=== PATIENT | male | born 1940 | race Caucasian/White ===

== ENCOUNTER → 2016-07-09 | Outpatient (CLI) | payer MEDICARE ==
[2016-07-09 08:50] LABS: Basophils # (A) 0.1 k/uL (0-0.2); Basophils % (A) 1 %; CH 30.1; CHCM 31.7; Eosinophils # (A) 0.3 k/uL (0-0.7); Eosinophils % (A) 5 %; HDW 2.39; HGB 16.6 gm/dL (13.0-17.5); Luc # (Auto) 0.14; Luc % (Auto) 2; Lymphocytes # (A) 1.7 k/uL (1.0-4.8); Lymphocytes % (A) 26 %; MCH 29.3 pg (25.0-35.0); MCHC 30.8 g/dL (31.0-37.0); MCV 95.2 fL (80.0-100.0); Mean Platelet Volume 7.4; Monocytes # (A) 0.3 k/uL (0-1.0); Monocytes % (A) 4 %; Neutrophils # (A) 4.1 k/uL (1.3-7.7); Neutrophils % (A) 62 %; RBC 5.67 m/uL (4.30-5.90); RDW 13.2 % (11.5-15.5); WBC 6.7 k/uL (3.8-10.6); WBC (Perox) 6.56
[2016-07-09 09:03] LABS: ALT 25 U/L (21-72); AST 20 U/L (17-59); Alkaline Phosphatase 95 U/L (38-126); Anion Gap 11 mmol/L; Blood Urea Nitrogen 19 mg/dL (9-20); Calcium 9.4 mg/dL (8.4-10.2); Carbon Dioxide 30 mmol/L (22-30); Chloride 101 mmol/L (98-107); Cholesterol 153 mg/dL (<200); Glucose 132 mg/dL (74-99); HDL Cholesterol 32 mg/dL (40-60); Non-African American GFR(MDRD) >60 (>60 ml/min/1.73 sqM); Potassium 4.7 mmol/L (3.5-5.1); Sodium 142 mmol/L (137-145); Total Bilirubin 0.9 mg/dL (0.2-1.3); Total Protein 7.3 g/dL (6.3-8.2); Triglycerides 90 mg/dL (<150)
[2016-07-09 12:11] LABS: Hemoglobin A1C 9.3 % (4.2-6.1)
== END ==
LOC: LABWHC1 08:15
PROVIDERS: ATTEND Internal Medicine Interventional Cardiology
DX: E78.2 Mixed hyperlipidemia (principal)
CPT/HCPCS: 36415; 80053; 80061; 83036; 84439; 84443; 85025

== ENCOUNTER → 2016-10-12 | Outpatient (CLI) | payer MEDICARE ==
[2016-10-12 09:36] LABS: Non-African American GFR(MDRD) >60 (>60 ml/min/1.73 sqM)
--- NOTE | 2016-10-12 11:19 | MR ---
EXAMINATION TYPE: MR brain wo/w con DATE OF EXAM: 10/12/2016 COMPARISON: 09/27/2013 HISTORY: Meningioma TECHNIQUE: Multiplanar, multisequence images of the brain and brainstem is performed without and with IV contras t, utilizing 20 mL intravenous MultiHance . FINDINGS:Postop defect noted in the left parietal brain compatible with patient's history of meningio ma, there is some residual gliosis, increased signal on inversion recovery and T2-weighted sequences in the underlying brain at this level as on prior exam. No abnormal enhancement. Midline structures demonstrate normal morphology. The craniocervical junction appears within normal limits. Craniocervical junction maintained. No evidence of acute ischemia. No cerebellopontine angle mass. Se lla turcica has a normal appearance. There are stable appearing nonspecific areas of abnormal signal throughout the white matter. Mild changes of chronic mastoiditis and sinusitis. Post contrast images demonstrate no abnormal enhancement. The dural venous sinuses appear patent. The visualized sinuses are clear and the globes are intact. IMPRESSION: 1. Stable postoperative change with no evidence of enhancing meningioma. 2. Postsurgical change with area of encephalomalacia involving the left parietal lobe stable in appea lelo 3. Nonspecific white matter changes most typical remote microvascular ischemia.
== END | disposition home or self-care (01) ==
LOC: RADMRIMAIN 08:56
PROVIDERS: ATTEND Neurological Surgery
DX: G93.89 Other specified disorders of brain (principal); R90.82 White matter disease, unspecified
CPT/HCPCS: 82565; 70553; 36415; A9577

== ENCOUNTER 2016-12-07 19:41 | Emergency (ER) | payer MEDICARE ==
[2016-12-07 19:51] VITALS: RESP 18
[2016-12-07] MEDS ORDERED: KETOROLAC 60 MG/2 ML VIAL IM STA (20:01)
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
--- NOTE | 2016-12-07 20:48 | XR ---
EXAMINATION TYPE: XR knee complete LT DATE OF EXAM: 12/07/2016 COMPARISON: NONE HISTORY: 76-year-old male knee pain for 3 days TECHNIQUE: 3 views FINDINGS: IMPRESSION: There is marginal spurring within the patellofemoral and medial compartments with mild to moderate me dial compartment joint space narrowing. Small knee joint effusion. Extensor mechanism is intact. No a cute fracture, subluxation, or dislocation. Metastatic calcifications in the popliteal artery. IMPRESSION: 1. Medial and patellofemoral compartment osteoarthrosis. Weightbearing view could better evaluate the degree of joint space narrowing in the medial compartment. 2. Small, likely reactive, knee joint effusion.
[2016-12-07 21:15] VITALS: BP 182/68; PULSE 64; TEMP 98.2
== END 2016-12-07 21:12 | disposition home or self-care (01) ==
LOC: EC 19:41
DX: M25.562 Pain in left knee (principal); I25.10 Atherosclerotic heart disease of native coronary artery without angina pectoris; J44.9 Chronic obstructive pulmonary disease, unspecified; E78.5 Hyperlipidemia, unspecified; I10 Essential (primary) hypertension; M19.90 Unspecified osteoarthritis, unspecified site; E10.9 Type 1 diabetes mellitus without complications; Z87.891 Personal history of nicotine dependence; Z79.4 Long term (current) use of insulin; Z79.1 Long term (current) use of non-steroidal anti-inflammatories (NSAID); Z79.82 Long term (current) use of aspirin; Z79.899 Other long term (current) drug therapy; Z88.5 Allergy status to narcotic agent; Z91.040 Latex allergy status
CPT/HCPCS: 73562; 99283; 96372; J1885

== ENCOUNTER 2017-06-01 09:56 | Inpatient (IN) | payer MEDICARE ==
[2017-06-01] MEDS ORDERED: DIAZEPAM 5 MG/ML 2 ML INJ IVP STA (10:27)
[2017-06-01] MEDS ORDERED: ONDANSETRON 4 MG/2 ML VIAL IVP STA (10:27)
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
[2017-06-01] MEDS: SODIUM CHLORIDE 0.9% 1,000 ML IV STA ×2 (10:49→16:51)
[2017-06-01 10:51] LABS: Basophils # (A) 0.1 k/uL (0-0.2); Basophils % (A) 1 %; Eosinophils # (A) 0.2 k/uL (0-0.7); Eosinophils % (A) 2 %; HCT 52.2 % (39.0-53.0); HGB 16.6 gm/dL (13.0-17.5); Lymphocytes # (A) 1.1 k/uL (1.0-4.8); Lymphocytes % (A) 11 %; MCH 29.8 pg (25.0-35.0); MCHC 31.8 g/dL (31.0-37.0); MCV 93.5 fL (80.0-100.0); Mean Platelet Volume 7.4; Monocytes # (A) 0.6 k/uL (0-1.0); Monocytes % (A) 6 %; Neutrophils # (A) 8.3 k/uL (1.3-7.7); Neutrophils % (A) 80 %; Platelet Count 208 k/uL (150-450); RBC 5.58 m/uL (4.30-5.90); WBC 10.5 k/uL (3.8-10.6)
[2017-06-01 10:59] LABS: ALT 25 U/L (21-72); AST 22 U/L (17-59); Albumin 3.9 g/dL (3.5-5.0); Alkaline Phosphatase 82 U/L (38-126); Amylase 54 U/L (30-110); Anion Gap 11 mmol/L; Blood Urea Nitrogen 24 mg/dL (9-20); Calcium 9.5 mg/dL (8.4-10.2); Carbon Dioxide 28 mmol/L (22-30); Chloride 101 mmol/L (98-107); Glucose 159 mg/dL (74-99); Lipase 16 U/L (23-300); Potassium 5.2 mmol/L (3.5-5.1); Sodium 140 mmol/L (137-145); Total Bilirubin 0.8 mg/dL (0.2-1.3); Total Protein 6.7 g/dL (6.3-8.2)
[2017-06-01 11:09] LABS: INR 1.1 (<1.2); Partial Thromboplastin Time 22.1 sec (22.0-30.0); Prothrombin Time 10.3 sec (9.0-12.0)
--- NOTE | 2017-06-01 11:25 | XR ---
EXAMINATION TYPE: XR KUB , 2 VIEWS DATE OF EXAM ORDERED: 06/01/2017 HISTORY: abdominal pain. COMPARISON: Previous study dated 03/07/2015. FINDINGS: There is an Koko Chick prosthesis in place. The lung bases are clear. Within the abdomen, there are multiple air-fluid levels. The gallbladder has been removed. There is n o evidence of obstruction or free air. IMPRESSION: FINDINGS MOST CONSISTENT WITH SMALL BOWEL ILEUS.
[2017-06-01] MEDS ORDERED: IOHEXOL 350 MG/ML 25 ML BOTTLE (ORAL USE) PO PRN (11:40)
[2017-06-01] MEDS ORDERED: RX INFO: IV CONTRAST WAS GIVEN 1 EACH MISC MISCELLANE PRN (11:40)
[2017-06-01 12:01] LABS: Appearance,Urine Clear (Clear); Bacteria,Urine Rare /hpf; Bilirubin,Urine Negative (Negative); Blood,Urine Negative (Negative); Color,Urine Yellow; Glucose,Urine (UA) Negative (Negative); Hyaline Casts,Urine 1 /lpf (0-2); Ketones,Urine Negative (Negative); Leukocyte Esterase,Urine Trace (Negative); Mucus,Urine Few /hpf; Nitrite,Urine Negative (Negative); PH, Urine 6.5 (5.0-8.0); Protein,Urine 1+ (Negative); RBC,Urine 1 /hpf (0-5); Specific Gravity,Urine 1.027 (1.001-1.035); WBC,Urine 3 /hpf (0-5)
--- NOTE | 2017-06-01 15:07 | CT ---
EXAMINATION TYPE: CT abdomen pelvis w con DATE OF EXAM: 06/01/2017 COMPARISON: 08/02/2015 HISTORY: Possible bowel obstruction CT DLP: 2033.8 mGycm Automated exposure control for dose reduction was used. TECHNIQUE: Helical acquisition of images was performed from the lung bases through the pelvis. CONTRAST: Performed with Oral Contrast and with IV Contrast, patient injected with 100 mL of Omnipaque 300. FINDINGS: There is nasogastric tube. There is a sleeve at the gastric fundus. Stomach otherwise appears normal. There is subpleural interstitial density at the lung bases consistent with fibrosis. There is no ple ural effusion. There are clips from cholecystectomy. Liver spleen pancreas appear normal. Bile ducts are not dilated . There is no adrenal mass. The kidneys show satisfactory contrast opacification. There is no hydroneph rosis. Abdominal aorta is atheromatous. There is no retroperitoneal adenopathy. Bladder distends smoo thly. There is no free fluid in the pelvis. There is fluid in the right colon. There are some dilated loops of small bowel that measure up to 3.5 cm in the mid abdomen. I do not see a transition point. There is no evidence of mesenteric edema. I see no small bowel wall thickening. I see no bony destructive process. IMPRESSION: THERE ARE SOME MILDLY DILATED SMALL BOWEL LOOPS IN THE MID ABDOMEN. I DO NOT SEE A TRANSITION POINT A ND I THINK THIS IS DUE TO INTESTINAL ILEUS. THERE IS FLUID IN THE RIGHT COLON ALSO CONSISTENT WITH IL EUS. MECHANICAL OBSTRUCTION CANNOT BE ENTIRELY EXCLUDED. ATHEROSCLEROTIC VASCULAR DISEASE. PREVIOUS BARIATRIC SURGERY NOTED. FIBROTIC CHANGES AT THE LUNG BASE S.
[2017-06-01] MEDS ORDERED: ONDANSETRON 4 MG/2 ML VIAL IVP PRN (15:29)
[2017-06-01] MEDS ORDERED: NALOXONE 0.4 MG/ML 1 ML VIAL IV PRN (15:29)
[2017-06-01 16:28] VITALS: BMI 29.5
[2017-06-01] MEDS ORDERED: NAPROXEN 250 MG TAB PO PRN (17:17)
[2017-06-01 17:29] LABS: Glucose,Whole Blood 107 mg/dL (75-99)
[2017-06-01] MEDS: INSULIN ASPART 100 UNIT/ML 1 ML 10 ML VIAL SQ SCH ×3 (18:06→21:05)
[2017-06-01 20:21] LABS: Glucose,Whole Blood 85 mg/dL (75-99)
[2017-06-01] MEDS: INSULIN DETEMIR 100 UNIT/ML 10 ML VIAL SQ SCH (21:05)
[2017-06-01] MEDS: ATORVASTATIN 10 MG TAB PO SCH (21:06)
[2017-06-01] MEDS: GABAPENTIN 100 MG CAP PO SCH ×2 (21:06→21:24)
[2017-06-01] MEDS: POTASSIUM CHLORIDE ER 10 MEQ TAB.ER.PRT PO SCH (21:06)
[2017-06-01] MEDS: ISOSORBIDE MONONITRATE ER 30 MG TAB.ER.24H PO SCH ×2 (21:06→21:24)
[2017-06-01] MEDS: MAGNESIUM OXIDE 400 MG TAB PO SCH (21:06)
[2017-06-01] MEDS: PANTOPRAZOLE 40 MG TABLET PO SCH ×2 (21:06→21:24)
[2017-06-01] MEDS: LOSARTAN 50 MG TAB PO SCH (21:06)
[2017-06-01] MEDS: KETOROLAC 30 MG/ML 1 ML VIAL IVP PRN (21:09)
[2017-06-01] MEDS: PANTOPRAZOLE 40 MG/10 ML VIAL IVP SCH (23:25)
[2017-06-01 23:28] LABS: Hemoglobin A1C 7.3 % (4.0-6.0)
[2017-06-02 06:43] LABS: Basophils # (A) 0.1 k/uL (0-0.2); Basophils % (A) 1 %; Eosinophils # (A) 0.4 k/uL (0-0.7); Eosinophils % (A) 6 %; HGB 14.4 gm/dL (13.0-17.5); Lymphocytes # (A) 1.4 k/uL (1.0-4.8); Lymphocytes % (A) 18 %; MCH 29.4 pg (25.0-35.0); MCHC 30.1 g/dL (31.0-37.0); MCV 97.7 fL (80.0-100.0); Mean Platelet Volume 6.8; Monocytes # (A) 0.5 k/uL (0-1.0); Monocytes % (A) 6 %; Neutrophils # (A) 4.9 k/uL (1.3-7.7); Neutrophils % (A) 67 %; Platelet Count 193 k/uL (150-450); RBC 4.91 m/uL (4.30-5.90); RDW 14.4 % (11.5-15.5); WBC 7.3 k/uL (3.8-10.6)
[2017-06-02 06:54] LABS: ALT 29 U/L (21-72); AST 23 U/L (17-59); Albumin 2.9 g/dL (3.5-5.0); Alkaline Phosphatase 63 U/L (38-126); Anion Gap 7 mmol/L; Blood Urea Nitrogen 22 mg/dL (9-20); Calcium 8.4 mg/dL (8.4-10.2); Carbon Dioxide 29 mmol/L (22-30); Chloride 104 mmol/L (98-107); Potassium 4.7 mmol/L (3.5-5.1); Sodium 140 mmol/L (137-145); Total Bilirubin 0.9 mg/dL (0.2-1.3); Total Protein 5.3 g/dL (6.3-8.2)
[2017-06-02] MEDS: DEXTROSE 50%-WATER 50 ML SYRINGE IVP STA ×2 (07:10→11:46)
[2017-06-02 07:11] LABS: Glucose 46 mg/dL (74-99)
[2017-06-02 07:20] VITALS: RESP 16
[2017-06-02 07:28] LABS: Glucose,Whole Blood 48 mg/dL (75-99)
[2017-06-02 07:36] LABS: Glucose,Whole Blood 116 mg/dL (75-99)
[2017-06-02] MEDS: INSULIN ASPART 100 UNIT/ML 1 ML 10 ML VIAL SQ SCH ×7 (07:55→21:54)
[2017-06-02] MEDS: VIT A,C & E-LUTEIN-MINERALS 1 EACH TAB PO SCH (08:23)
[2017-06-02] MEDS: PANTOPRAZOLE 40 MG/10 ML VIAL IVP SCH (08:24)
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
[2017-06-02 11:48] LABS: Glucose,Whole Blood 47 mg/dL (75-99)
[2017-06-02] MEDS: DEXTROSE 5%-0.9% NACL 1,000 ML IV SCH ×2 (12:00→21:59)
[2017-06-02 12:37] LABS: Glucose,Whole Blood 105 mg/dL (75-99)
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
--- NOTE | 2017-06-02 13:54 | XR ---
EXAMINATION TYPE: XR abdomen 2V DATE OF EXAM: 06/02/2017 CLINICAL HISTORY: Ileus. History of prior bowel surgery and obstruction. TECHNIQUE: Supine and upright views of the abdomen are obtained. COMPARISON: Abdominal x-ray and CT abdomen and pelvis from yesterday. FINDINGS: There is some paucity of small bowel gas. Gas is seen and probably nondistended small callie l loops. Slightly prominent gas-filled small bowel loops left lower quadrant remain present. Contrast from CT has progressed to colonic level. Cholecystectomy clips are redemonstrated. Surgical changes at diaphragmatic hiatus are again seen. The lung bases are clear and the osseous structures are inta ct. IMPRESSION: Overall nonspecific bowel gas pattern. Favor mild partial mid to distal small bowel obst ruction. No complete obstruction is present.
[2017-06-02] MEDS: KETOROLAC 30 MG/ML 1 ML VIAL IVP PRN (16:09)
[2017-06-02 17:10] LABS: Glucose,Whole Blood 152 mg/dL (75-99)
[2017-06-02 21:34] LABS: Glucose,Whole Blood 241 mg/dL (75-99)
[2017-06-02] MEDS: GABAPENTIN 100 MG CAP PO SCH (21:51)
[2017-06-02] MEDS: HEPARIN SODIUM,PORCINE 5,000 UNIT/ML 1 ML VIAL SQ SCH (21:51)
[2017-06-02] MEDS: POTASSIUM CHLORIDE ER 10 MEQ TAB.ER.PRT PO SCH (21:52)
[2017-06-02] MEDS: ISOSORBIDE MONONITRATE ER 30 MG TAB.ER.24H PO SCH (21:52)
[2017-06-02] MEDS: MAGNESIUM OXIDE 400 MG TAB PO SCH (21:52)
[2017-06-02] MEDS: ATORVASTATIN 10 MG TAB PO SCH (21:52)
[2017-06-02] MEDS: INSULIN DETEMIR 100 UNIT/ML 10 ML VIAL SQ SCH (21:52)
[2017-06-02] MEDS: LOSARTAN 50 MG TAB PO SCH (21:52)
[2017-06-03 07:05] LABS: Glucose,Whole Blood 96 mg/dL (75-99)
[2017-06-03] MEDS: INSULIN ASPART 100 UNIT/ML 1 ML 10 ML VIAL SQ SCH ×4 (07:56→12:58)
--- NOTE | 2017-06-03 08:14 | XR ---
EXAMINATION TYPE: XR abdomen 2V DATE OF EXAM: 06/03/2017 COMPARISON: June 02, 2017 HISTORY: Pain TECHNIQUE: Supine and upright views of the abdomen are submitted. FINDINGS: Contrast is seen within the colon. Distended loops of small bowel in midabdomen persist although appe ars slightly improved. No convincing evidence for pneumoperitoneum. No unusual calcifications. The lung bases are clear. The osseous structures are intact. IMPRESSION: 1. Contrast is seen within the colon. Distended loops of small bowel in midabdomen persist although appears slightly improved.
[2017-06-03] MEDS: HEPARIN SODIUM,PORCINE 5,000 UNIT/ML 1 ML VIAL SQ SCH (08:24)
[2017-06-03] MEDS: PANTOPRAZOLE 40 MG/10 ML VIAL IVP SCH (08:24)
[2017-06-03] MEDS: VIT A,C & E-LUTEIN-MINERALS 1 EACH TAB PO SCH (08:26)
[2017-06-03] MEDS: DEXTROSE 5%-0.9% NACL 1,000 ML IV SCH (08:27)
[2017-06-03 10:05] VITALS: BP 129/62; PULSE 63; TEMP 97.5
[2017-06-03 11:35] LABS: Glucose,Whole Blood 176 mg/dL (75-99)
--- NOTE | 2017-06-03 11:47 | P.PN ---
Subjective Progress Note Date: 06/03/17 76-year-old seen and examined up ambulating in the room and claire states passing gas. Reports no nausea vomiting. Patient states he had a bowel movement this morning. States abdominal pain has resolved . being followed by surgical service at the request of the attending for abdominal pain likely due to partial small bowel obstruction with ileus. Initially treated with a nasal gastric tube which was able to be removed on June 02 clear liquid diet with a noted improvement in the abdominal pain Objective - Vital Signs Vital signs: Vital Signs Temp 97.5 F L 06/03/17 07:00 Pulse 63 06/03/17 07:00 Resp 16 06/03/17 07:00 BP 129/62 06/03/17 07:00 Pulse Ox 97 06/03/17 07:00 Intake & Output 06/02/17 06/03/17 06/03/17 18:59 06:59 18:59 Intake Total 200 2590 Output Total 750 Balance -550 2590 Intake: IV 200 1000 Dextrose 5%-0.9% NaCl 1, 200 1000 000 ml @ 100 mls/hr IV . Q10H YOANDY Rx#:[id number] Oral 1590 Output: Gastric Drainage 350 Urine 400 Other: # Voids 1 - Exam Physical exam Pleasant 76-year-old gentleman up ambulating in the room appears in no acute distress oriented 3 states doing better abdominal pain resolved Lungs adequate air movement bilaterally no shortness of breath on room air Heart S1-S2 audible regular denying chest pain Abdomen soft no facial grimacing with palpitation to the abdominal wall bowel tones present no nausea no vomiting states had a large bowel movement this morning tolerating diet urinating no difficulty nontender nondistended Extremities no edema - Labs CBC & Chem 7: 06/02/17 06:13 06/02/17 06:13 Labs: Abnormal Lab Results - Last 24 Hours (Table) 06/02/17 06/02/17 06/02/17 Range/Units 11:42 12:10 17:04 POC Glucose (mg/dL) 47 L 105 H 152 H (75-99) mg/dL 06/02/17 06/03/17 Range/Units 20:51 11:25 POC Glucose (mg/dL) 241 H 176 H (75-99) mg/dL Assessment and Plan Assessment: Impression Present on admission umbilical epigastric discomfort with nausea sensation no active emesis suspect due to ileus resolving Present on admission nausea epigastric pain CAT scan abdomen and pelvis with contrast fluid in the right colon consistent with an ileus History of prior partial bowel obstruction most recent July 2015 History of a cholecystectomy done in 2015 History of chronic constipation Type 2 diabetes insulin requiring Hyperlipidemia Esophageal reflux Plan Advance to full liquid diet Continue with conservative management IV hydration as ordered Increase activity as tolerated DVT and GI prophylaxis No evidence of an acute surgical abdomen at this time will sign off re-eval as needed Pain control Progress note dictated for dr ramsay The above impression and plan of care have been discussed and directed by signing physician. Ana Marcelo nurse practitioner acting as scribe for signing physician.
--- NOTE | 2017-06-03 14:06 | CDI ---
Last Revision, March 2017 Documentation Clarification Form Date: 06/03/2017 1:44:00 PM From: Carole Frederick RN Admit Date: 06/01/2017 3:29:00 PM Patient Name: Leonel Mantilla Visit Number: [id number] ATTENTION: The Clinical Documentation Specialists (CDI) and [facility] Coding Staff appreciate your assistance in clarifying documentation. Please respond to the clarification below the line at the bottom and electronically sign. The CDI & [facility] Coding staff will review the response and follow-up if needed. Please note: Queries are made part of the Legal Health Record. If you have any questions, please contact the author of this message via ITS. Dr. Breezy Lopez and Mary Espinosa N.P., Conflicting documentation has been found in the medical record. In the H&P on 06/02 it is stated " combination of partial small bowel obstruction along with severe ileus" and "severe ileus with no real bowel obstruction". History/Risk Factors: CAD, COPD, DM, Hyperlipidemia, HTN, Osteoarthritis, Syncope multiple bowel obstructions in past currently admitted with severe abdominal pain and Ileus Clinical Indicators: CT on 06/01: mildly dilated small bowel loops in the mid abdomen. intestinal ileus. there is fluid in the right colon consistent with ileus. mechanical obstruction cannot be entirely excluded. Abdomen xr on 06/02: nonspecific bowel gas pattern, favor mild partial mid to distal small bowel obstruction. Progress Note on 06/03 Surgery states "partial small bowel obstruction with ileus". Treatment: Protonix, Zofran, IV fluids Consult: Surgical In your opinion what is the most clinically appropriate diagnosis for this patient? Small bowel obstruction Small bowel obstruction with Ileus Ileus (please specify cause) Other explanation of clinical findings Unable to determine (no explanation for clinical findings) Please continue to document in your progress notes and discharge summary in order to capture severity of illness and risk of mortality. Include clinical findings that support your diagnosis. MTDD
--- NOTE | 2017-06-03 15:09 | P.DS ---
Providers Date of admission: 06/01/17 15:29 Expected date of discharge: 06/03/17 Attending physician: Breezy Lopez Consults: 06/01/17 15:29 Consult Physician Urgent Consulting Provider: Maame Greenberg Reason/Comments: Ileus Do you want consulting provider notified?: Already Contacted Primary care physician: Breezy Lopez [facility] Course: 76-year-old male one of my office patient with past medical history of CAD COPD mild diabetes hyperlipidemia hypertension and osteoarthritis who had multiple abdominal surgery with previous history of partial obstruction with multiple adhesion in the past. Patient had significant constipation most of the time has been suffering from increase abdominal discomfort with nausea on and off become much worse the last 48 hours [facility] with nausea and vomiting with worsening pain was seen and evaluated his abdominal x-ray showed fluid level CAT scan of the abdomen showed more severe ileus with no real obstruction. Patient had an NG tube and was treated with conservative management and surgical consultation and admitted to the hospital with above problem. 06/03: Patient's diet will be advanced to regular for lunch today. He states he has had a bowel movement and denies any nausea vomiting. Patient will be discharged home later today after he has been seen by Dr. Greenberg Discharge diagnoses: 1 severe abdominal pain secondary to ileus 2 severe ileus with no real bowel obstruction 3 CAD 4 type 2 diabetes on insulin 5 hypertension 6 hyperlipidemia 7 severe GERD 8 severe neuropathy Discharge plan: Return home Impression and plan of care have been directed as dictated by the signing physician. Mary Espinosa nurse practitioner acting as scribe for signing physician. Patient Condition at Discharge: Good Plan - Discharge Summary New Discharge Prescriptions: No Action Simvastatin [Zocor] 20 mg PO HS Lansoprazole [Prevacid] 30 mg PO HS Isosorbide Mononitrate ER [Imdur] 30 mg PO HS Insulin Glargine [Lantus] 58 unit SQ HS Gabapentin [Neurontin] 200 mg PO HS Naproxen Sodium 220 mg PO BID PRN PRN Reason: Pain Potassium 595 mg PO HS Bisacodyl [Dulcolax] 10 mg PO ONCE PRN PRN Reason: Constipation Magnesium Oxide [Mag-Ox] 250 mg PO HS Losartan [Cozaar] 50 mg PO HS Insulin Aspart [NovoLOG (formulary)] 12 unit SQ AC-BRKFST Insulin Aspart [NovoLOG (formulary)] 17 unit SQ AC-SUPPER Insulin Aspart [NovoLOG (formulary)] 12 unit SQ AC-LUNCH C,E,Zinc,Copper 11/Vyzxu9g/Lut [Ocuvite Adult 50 Plus Softgel] 1 cap PO DAILY Discharge Medication List Gabapentin [Neurontin] 200 mg PO HS 08/02/15 [History] Insulin Glargine [Lantus] 58 unit SQ HS 08/02/15 [History] Isosorbide Mononitrate ER [Imdur] 30 mg PO HS 08/02/15 [History] Lansoprazole [Prevacid] 30 mg PO HS 08/02/15 [History] Simvastatin [Zocor] 20 mg PO HS 08/02/15 [History] Naproxen Sodium 220 mg PO BID PRN 02/16/16 [History] Potassium 595 mg PO HS 12/07/16 [History] Bisacodyl [Dulcolax] 10 mg PO ONCE PRN 06/01/17 [History] C,E,Zinc,Copper 11/Tfuxm0z/Lut [Ocuvite Adult 50 Plus Softgel] 1 cap PO DAILY [History] Insulin Aspart [NovoLOG (formulary)] 12 unit SQ AC-BRKFST 06/01/17 [History] Insulin Aspart [NovoLOG (formulary)] 12 unit SQ AC-LUNCH 06/01/17 [History] Insulin Aspart [NovoLOG (formulary)] 17 unit SQ AC-SUPPER 06/01/17 [History] Losartan [Cozaar] 50 mg PO HS 06/01/17 [History] Magnesium Oxide [Mag-Ox] 250 mg PO HS 06/01/17 [History] Follow up Appointment(s)/Referral(s): Breezy Lopez MD [Primary Care Provider] - 06/05/17 10:30 am Patient Instructions/Handouts: Ileus (DC)
== END 2017-06-03 14:45 | disposition home or self-care (01) | DRG 390 ==
LOC: EC 09:56 → 3SUR 15:29
PROVIDERS: ADMIT Internal Medicine Geriatric Medicine; ATTEND Internal Medicine Geriatric Medicine
DX: K56.7 Ileus, unspecified (principal); E11.40 Type 2 diabetes mellitus with diabetic neuropathy, unspecified; E11.69 Type 2 diabetes mellitus with other specified complication; E78.5 Hyperlipidemia, unspecified; I10 Essential (primary) hypertension; I25.10 Atherosclerotic heart disease of native coronary artery without angina pectoris; J43.9 Emphysema, unspecified; K21.9 Gastro-esophageal reflux disease without esophagitis; Z79.4 Long term (current) use of insulin; Z79.899 Other long term (current) drug therapy; Z80.0 Family history of malignant neoplasm of digestive organs; Z82.49 Family history of ischemic heart disease and other diseases of the circulatory system; Z86.011 Personal history of benign neoplasm of the brain; Z87.891 Personal history of nicotine dependence; Z96.1 Presence of intraocular lens; Z98.41 Cataract extraction status, right eye; Z98.42 Cataract extraction status, left eye; Z91.040 Latex allergy status
CPT/HCPCS: 36415; 43753; 74018; 74019; 74177; 80053; 81001; 82150; 83036; 83605; 83690; 85025; 85610; 85730; 86850; 86900; 86901; 96374; 96375; 99285

== ENCOUNTER → 2017-10-03 | Outpatient (CLI) | payer MEDICARE ==
[2017-10-03 10:35] LABS: Basophils # (A) 0.1 k/uL (0-0.2); Basophils % (A) 1 %; Eosinophils # (A) 0.4 k/uL (0-0.7); Eosinophils % (A) 6 %; HCT 50.9 % (39.0-53.0); HGB 16.6 gm/dL (13.0-17.5); Lymphocytes # (A) 1.5 k/uL (1.0-4.8); Lymphocytes % (A) 20 %; MCH 30.2 pg (25.0-35.0); MCHC 32.5 g/dL (31.0-37.0); MCV 92.8 fL (80.0-100.0); Mean Platelet Volume 6.5; Monocytes # (A) 0.4 k/uL (0-1.0); Monocytes % (A) 6 %; Neutrophils # (A) 4.7 k/uL (1.3-7.7); Neutrophils % (A) 65 %; Platelet Count 190 k/uL (150-450); RBC 5.49 m/uL (4.30-5.90); RDW 13.4 % (11.5-15.5); WBC 7.2 k/uL (3.8-10.6)
[2017-10-03 10:46] LABS: ALT 28 U/L (21-72); AST 22 U/L (17-59); Albumin 3.9 g/dL (3.5-5.0); Alkaline Phosphatase 72 U/L (38-126); Anion Gap 10 mmol/L; Blood Urea Nitrogen 18 mg/dL (9-20); Calcium 9.1 mg/dL (8.4-10.2); Carbon Dioxide 32 mmol/L (22-30); Chloride 99 mmol/L (98-107); Cholesterol 131 mg/dL (<200); Glucose 103 mg/dL (74-99); HDL Cholesterol 28 mg/dL (40-60); LDL Cholesterol,Calculated 87 mg/dL (0-99); Potassium 4.8 mmol/L (3.5-5.1); Sodium 141 mmol/L (137-145); Total Bilirubin 0.9 mg/dL (0.2-1.3); Total Protein 6.5 g/dL (6.3-8.2); Triglycerides 78 mg/dL (<150)
[2017-10-03 11:00] LABS: T4, Free (Free Thyroxine) 1.25 ng/dL (0.78-2.19)
[2017-10-03 17:28] LABS: Hemoglobin A1C 7.5 % (4.0-6.0)
== END | disposition home or self-care (01) ==
LOC: LABWHC1 10:00
PROVIDERS: ATTEND Internal Medicine Endocrinology, Diabetes & Metabolism
DX: E11.65 Type 2 diabetes mellitus with hyperglycemia (principal); K21.9 Gastro-esophageal reflux disease without esophagitis; E78.00 Pure hypercholesterolemia, unspecified; I10 Essential (primary) hypertension
CPT/HCPCS: 36415; 80053; 80061; 82043; 82570; 83036; 84439; 84443; 85025

== ENCOUNTER 2017-11-29 18:54 | Inpatient (IN) | payer MEDICARE ==
[2017-11-29] MEDS ORDERED: SODIUM CHLORIDE 0.9% 1,000 ML IV STA (19:05)
[2017-11-29 19:10] LABS: Glucose,Whole Blood 208 mg/dL (75-99)
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
[2017-11-29 19:27] LABS: Basophils % (A) 0 %; Eosinophils # (A) 0.3 k/uL (0-0.7); Eosinophils % (A) 3 %; HCT 45.2 % (39.0-53.0); HGB 14.1 gm/dL (13.0-17.5); Lymphocytes # (A) 0.9 k/uL (1.0-4.8); Lymphocytes % (A) 10 %; MCH 27.9 pg (25.0-35.0); MCHC 31.2 g/dL (31.0-37.0); MCV 89.6 fL (80.0-100.0); Mean Platelet Volume 6.6; Monocytes # (A) 0.4 k/uL (0-1.0); Monocytes % (A) 4 %; Neutrophils # (A) 7.6 k/uL (1.3-7.7); Neutrophils % (A) 82 %; Platelet Count 226 k/uL (150-450); RBC 5.05 m/uL (4.30-5.90); RDW 13.1 % (11.5-15.5); WBC 9.3 k/uL (3.8-10.6)
[2017-11-29 19:38] LABS: INR 1.1 (<1.2); Partial Thromboplastin Time 23.3 sec (22.0-30.0); Prothrombin Time 10.5 sec (9.0-12.0)
[2017-11-29 19:46] LABS: Creatine Kinase 77 U/L (55-170)
[2017-11-29 19:47] LABS: ALT 33 U/L (21-72); AST 23 U/L (17-59); Albumin 3.5 g/dL (3.5-5.0); Alkaline Phosphatase 78 U/L (38-126); Anion Gap 6 mmol/L; Blood Urea Nitrogen 18 mg/dL (9-20); Calcium 8.8 mg/dL (8.4-10.2); Carbon Dioxide 27 mmol/L (22-30); Chloride 99 mmol/L (98-107); Glucose 215 mg/dL (74-99); Potassium 5.6 mmol/L (3.5-5.1); Sodium 132 mmol/L (137-145); Total Bilirubin 0.5 mg/dL (0.2-1.3); Total Protein 6.1 g/dL (6.3-8.2)
[2017-11-29 19:58] LABS: Creatine Kinase MB 0.9 ng/mL (0.0-2.4); Troponin I <0.012 ng/mL (0.000-0.034)
--- NOTE | 2017-11-29 20:01 | CT ---
EXAMINATION TYPE: CT brain wo con for TPA DATE OF EXAM: 11/29/2017 COMPARISON: 09/18/2013. INDICATION: Neuro deficits. DLP: 1035.2 mGycm, Automated exposure control for dose reduction was used. CONTRAST: None CT of the brain is performed utilizing 3 mm thick sections through the posterior fossa and 3 mm thick sections through the remaining calvarium. Study is performed within 24 hours of arrival to the hosp ital. No abnormal hyperdensity is present to suggest an acute intracranial hemorrhage. No mass lesion is evident. No acute infarcts are evident. 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 Mild periventricular white gayle er ischemic type changes are present. Ventricles and sulci are otherwise appropriate for the patient age. Paranasal sinuses and mastoid air cells within the [id number] are clear. IMPRESSIONS: 1. 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 2. Periventricular white matter ischemic change is stable. 3. No acute intracranial hemorrhage. 4. No acute cranial process.
--- NOTE | 2017-11-29 20:14 | XR ---
EXAMINATION TYPE: XR chest 2V DATE OF EXAM: 11/29/2017 COMPARISON: 09/18/2013 INDICATION: Altered mental status TECHNIQUE: Frontal and lateral views of the chest are obtained. FINDINGS: The heart size is enlarged. The pulmonary vasculature is prominent. Minimal increased lung markings are present.. IMPRESSION: 1. Mild increased lung markings with cardiomegaly. Correlate for early pulmonary edema Overload
--- NOTE | 2017-11-29 20:25 | CT ---
EXAMINATION TYPE: CT angio head neck DATE OF EXAM: 11/29/2017 HISTORY: Neuro deficits. COMPARISON: None CT DLP: 310 mGycm. Automated Exposure Control for Dose Reduction was Utilized. TECHNIQUE: CTA scan of the neck is performed with IV Contrast, patient injected with 65ml mL of Isov ue 370, axial images are obtained, coronal and sagittal reformatted images are reviewed. Three-D kiel nstructed images are created on an independent workstation and reviewed. FINDINGS: Carotid/Vascular Structures: Common carotid arteries bifurcate into internal and external carotid art eries. Mild plaquing is present at the left carotid bifurcation without significant flow-limiting boaz nosis. The internal carotid arteries are tortuous. [place]: The internal carotid arteries bifurcate into A1 and M1 segments. A2 segments are no rmal. Middle cerebral artery branches appear within normal limits. Posterior cerebral vasculature is normal. Posterior communicating arteries are not identified. The anterior communicating artery is pat ent. IMPRESSION: 1. No significant flow-limiting stenosis.
[2017-11-29] MEDS ORDERED: SODIUM POLYSTYRENE SULFONATE 15 GM/60 ML BOTTLE PO STA (23:13)
[2017-11-29] MEDS ORDERED: NALOXONE 0.4 MG/ML 1 ML VIAL IV PRN (23:14)
[2017-11-29] MEDS ORDERED: ACETAMINOPHEN TAB 325 MG TAB PO PRN (23:14)
[2017-11-29] MEDS: SODIUM CHLORIDE 0.9% 1,000 ML IV SCH (23:35)
[2017-11-30 03:19] LABS: Appearance,Urine Clear (Clear); Bilirubin,Urine Negative (Negative); Blood,Urine Negative (Negative); Color,Urine Light Yellow; Glucose,Urine (UA) Negative (Negative); Ketones,Urine Negative (Negative); Leukocyte Esterase,Urine Negative (Negative); Nitrite,Urine Negative (Negative); Protein,Urine Negative (Negative); Specific Gravity,Urine 1.013 (1.001-1.035); Urobilinogen,Urine <2.0 mg/dL (<2.0)
[2017-11-30] MEDS: INSULIN ASPART 100 UNIT/ML 1 ML 10 ML VIAL SQ SCH ×4 (08:03→21:24)
[2017-11-30 08:36] LABS: Glucose,Whole Blood 248 mg/dL (75-99)
[2017-11-30 11:49] LABS: Glucose,Whole Blood 290 mg/dL (75-99)
[2017-11-30 13:18] LABS: Glucose,Whole Blood 262 mg/dL (75-99)
--- NOTE | 2017-11-30 13:42 | CT ---
EXAMINATION TYPE: CT brain wo con for TPA DATE OF EXAM: 11/30/2017 COMPARISON: Previous study dated 11/29/2017 HISTORY: CODE Stroke CT DLP: 1047.10 mGycm Automated exposure control for dose reduction was used. FINDINGS: There are generalized changes of sulcal prominence and ventriculomegaly, compatible with atrophic hal nge. There is diffuse periventricular white matter lucency, compatible with chronic white matter isch emic change. There has been a previous left parietal craniotomy. There is adjacent encephalomalacia. This may relate to a previous watershed infarct or other insult. There is no acute focal lesion, mass effect or midline shift. There is no intracranial blood. Visualized portions of the paranasal sinuses and mastoids are clear. IMPRESSION: 1. NO ACUTE INTRACRANIAL ABNORMALITY. 2. POSTOPERATIVE CHANGE. 3. 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
[2017-11-30 14:06] LABS: Basophils % (A) 1 %; Eosinophils # (A) 0.4 k/uL (0-0.7); Eosinophils % (A) 6 %; HCT 46.6 % (39.0-53.0); Lymphocytes # (A) 1.3 k/uL (1.0-4.8); Lymphocytes % (A) 20 %; MCH 29.3 pg (25.0-35.0); MCHC 32.1 g/dL (31.0-37.0); MCV 91.3 fL (80.0-100.0); Mean Platelet Volume 6.7; Monocytes # (A) 0.3 k/uL (0-1.0); Monocytes % (A) 4 %; Neutrophils # (A) 4.4 k/uL (1.3-7.7); Neutrophils % (A) 67 %; Platelet Count 194 k/uL (150-450); RBC 5.11 m/uL (4.30-5.90); RDW 13.3 % (11.5-15.5); WBC 6.5 k/uL (3.8-10.6)
[2017-11-30 14:14] LABS: INR 1.1 (<1.2); Partial Thromboplastin Time 23.3 sec (22.0-30.0); Prothrombin Time 10.9 sec (9.0-12.0)
[2017-11-30 14:22] LABS: ALT 28 U/L (21-72); AST 21 U/L (17-59); Albumin 3.4 g/dL (3.5-5.0); Alkaline Phosphatase 69 U/L (38-126); Anion Gap 7 mmol/L; Blood Urea Nitrogen 16 mg/dL (9-20); Calcium 8.8 mg/dL (8.4-10.2); Carbon Dioxide 25 mmol/L (22-30); Chloride 102 mmol/L (98-107); Glucose 239 mg/dL (74-99); Potassium 4.8 mmol/L (3.5-5.1); Sodium 134 mmol/L (137-145); Total Bilirubin 0.6 mg/dL (0.2-1.3); Total Protein 5.9 g/dL (6.3-8.2)
[2017-11-30 14:50] LABS: Amphetamine Screen,Urine Not Detected (NotDetected); Barbiturate Screen,Urine Not Detected (NotDetected); Benzodiazepines Screen,Urine Not Detected (NotDetected); Cocaine Screen,Urine Not Detected (NotDetected); Methadone Screen, Urine Not Detected (NotDetected); Opiate Screen,Urine Not Detected (NotDetected); Oxycodone Screen, Urine Not Detected (NotDetected); Phencyclidine Screen,Urine Not Detected (NotDetected); Tricyclic Antidepressant,Urine Not Detected (NotDetected); Urn Cannabinoid Scrn Not Detected (NotDetected)
[2017-11-30 16:45] LABS: Glucose,Whole Blood 205 mg/dL (75-99)
[2017-11-30] MEDS ORDERED: BISACODYL 5 MG TABLET.DR PO PRN (17:29)
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
[2017-11-30] MEDS ORDERED: ATORVASTATIN 10 MG TAB PO SCH (21:00)
[2017-11-30] MEDS: INSULIN DETEMIR 100 UNIT/ML 10 ML VIAL SQ SCH (21:05)
[2017-11-30] MEDS: LOSARTAN 50 MG TAB PO SCH (21:06)
[2017-11-30] MEDS: PANTOPRAZOLE 40 MG TABLET PO SCH (21:06)
[2017-11-30] MEDS: GABAPENTIN 100 MG CAP PO SCH (21:06)
[2017-11-30] MEDS: ISOSORBIDE MONONITRATE ER 30 MG TAB.ER.24H PO SCH (21:06)
[2017-11-30] MEDS: MAGNESIUM OXIDE 400 MG TAB PO SCH (21:07)
[2017-11-30] MEDS: ATORVASTATIN 40 MG TAB PO SCH (21:09)
[2017-11-30] MEDS: CLOPIDOGREL 75 MG TAB PO SCH (21:09)
[2017-11-30 21:11] LABS: Glucose,Whole Blood 313 mg/dL (75-99)
[2017-11-30] MEDS: SODIUM CHLORIDE 0.9% 1,000 ML IV SCH (21:31)
[2017-12-01 05:45] LABS: Glucose,Whole Blood 237 mg/dL (75-99)
[2017-12-01] MEDS: INSULIN ASPART 100 UNIT/ML 1 ML 10 ML VIAL SQ SCH ×4 (06:04→21:40)
--- NOTE | 2017-12-01 07:00 | MR ---
EXAMINATION TYPE: MR brain wo/w con DATE OF EXAM: 12/01/2017 COMPARISON: CT brain from yesterday. MRI brain from October 12, 2016. HISTORY: Stroke per order. Patient admitted for code stroke symptoms one day earlier, weakness, alter ed mental status, and fall. TECHNIQUE: Multiplanar, multisequence images of the brain and brainstem is performed without and with IV contras t, utilizing 10 mL intravenous Gadavist . FINDINGS: Diffusion weighted images demonstrate area of increased signal on diffusion weighted images with diminished signal on ADC mapping involving the anterior aspect of right thalamus with superior extension to the coronal radiata that shows T2 hyperintensity and T1 hypointensity consistent with ev olving acute/subacute infarct measuring approximately 2.1 x 1.3 cm image 136 series 305. Craniocaudal dimension is 1.2 cm sagittal image 97. No enhancement currently. There is no extra-axial fluid collection or significant white matter signal abnormality. The ventric ular system and cisternal spaces are stable in size and appearance. The brain volume is age appropri ate. Old infarct left parietal region axial image 20 is redemonstrated. Craniotomy changes superior t o this are redemonstrated. Midline structures demonstrate normal morphology. The craniocervical junction appears within normal limits. Post contrast images demonstrate no abnormal enhancement. The dural venous sinuses appear pa tent. Mild to moderate mucosal thickening involving ethmoid sinuses is again seen with mild mucosal t hickening inferior right maxillary sinus. The globes are intact bilaterally. IMPRESSION: Evolving roughly 2.0 cm acute infarct centered in the anterior right thalamus.
[2017-12-01 08:16] LABS: Basophils % (A) 1 %; Eosinophils # (A) 0.5 k/uL (0-0.7); Eosinophils % (A) 7 %; HCT 44.3 % (39.0-53.0); HGB 13.8 gm/dL (13.0-17.5); Lymphocytes # (A) 1.2 k/uL (1.0-4.8); Lymphocytes % (A) 18 %; MCHC 31.1 g/dL (31.0-37.0); MCV 90.1 fL (80.0-100.0); Mean Platelet Volume 6.7; Monocytes # (A) 0.4 k/uL (0-1.0); Monocytes % (A) 6 %; Neutrophils # (A) 4.5 k/uL (1.3-7.7); Neutrophils % (A) 66 %; Platelet Count 223 k/uL (150-450); RBC 4.91 m/uL (4.30-5.90); RDW 13.1 % (11.5-15.5); WBC 6.7 k/uL (3.8-10.6)
[2017-12-01 08:36] LABS: Albumin 3.1 g/dL (3.5-5.0); Calcium 8.9 mg/dL (8.4-10.2); Potassium 4.7 mmol/L (3.5-5.1); Total Bilirubin 0.7 mg/dL (0.2-1.3); Total Protein 5.6 g/dL (6.3-8.2)
--- NOTE | 2017-12-01 10:51 | ECHOF ---
Referral Reason:code stroke MEASUREMENTS -------- HEIGHT: 180.3 cm WEIGHT: 99.3 kg BP: 118/74 RVIDd: 3.0 cm (< 3.3) IVSd: 1.2 cm (0.6 - 1.1) LVIDd: 5.3 cm (3.9 - 5.3) LVPWd: 1.2 cm (0.6 - 1.1) IVSs: 2.0 cm LVIDs: 3.3 cm LVPWs: 1.7 cm LA Diam: 2.9 cm (2.7 - 3.8) LAESV Index (A-L): 16.00 ml/m Ao Diam: 3.6 cm (2.0 - 3.7) AV Cusp: 2.1 cm (1.5 - 2.6) MV EXCURSION: 21.150 mm (> 18.000) MV EF SLOPE: 14 mm/s (70 - 150) EPSS: 0.1 cm MV E Jared: 0.72 m/s MV DecT: 214 ms MV A Jared: 0.83 m/s MV E/A Ratio: 0.87 AR PHT: 745 ms FINDINGS -------- Sinus rhythm. This was a technically adequate study. The left ventricular size is normal. There is borderline concentric left ventricular hypertrophy. Overall left ventricular systolic function is normal with, an EF between 60 - 65 %. The right ventricle is normal in size. Normal LA size by volume 22+/-6 ml/m2. The right atrium is normal in size. There is mild aortic valve sclerosis. There is mild aortic regurgitation. Mild mitral annular calcification present. The tricuspid valve appears structurally normal. There is no pulmonic regurgitation present. The aortic root size is normal. IVC Not well visulized. There is no pericardial effusion. CONCLUSIONS -------- 1. Sinus rhythm. 2. This was a technically adequate study. 3. The left ventricular size is normal. 4. There is borderline concentric left ventricular hypertrophy. 5. Overall left ventricular systolic function is normal with, an EF between 60 - 65 %. 6. The right ventricle is normal in size. 7. Normal LA size by volume 22+/-6 ml/m2. 8. The right atrium is normal in size. 9. There is mild aortic valve sclerosis. 10. There is mild aortic regurgitation. 11. Mild mitral annular calcification present. 12. The tricuspid valve appears structurally normal. 13. There is no pulmonic regurgitation present. 14. The aortic root size is normal. 15. IVC Not well visulized. 16. There is no pericardial effusion. APPLICATION SECURITY SPECIALIST: Grace Jeffries RDCS
[2017-12-01 11:16] LABS: Glucose,Whole Blood 309 mg/dL (75-99)
[2017-12-01] MEDS: VIT A,C & E-LUTEIN-MINERALS 1 EACH TAB PO SCH (11:45)
[2017-12-01] MEDS: CLOPIDOGREL 75 MG TAB PO SCH (11:45)
[2017-12-01 11:54] LABS: Hemoglobin A1C 8.8 % (4.0-6.0)
--- NOTE | 2017-12-01 15:32 | P.PN ---
Subjective Progress Note Date: 12/01/17 76-year-old male patient of Dr. Lopez with past medical history of CAD COPD insulin-dependent diabetes hyperlipidemia hypertension and osteoarthritis who had multiple abdominal surgery with previous history of partial obstruction with multiple adhesion in the past. patient was doing well until yesterday afternoon when he had sudden onset of confusion and dizziness and had of all in the bathroom. Patient was dizzy but did not lose consciousness. Patient has been actively working in the garden on and does get hypoglycemic in the past. Glucose could not be checked as pupil meter was not working. EMS gave patient some dextrose which improved the glucose when patient came to the ER. Patient was found to be increasingly weak and had slurring of speech intermittently. He denies any confusion, loss of motor or sensory function. Patient denies any previous episodes. No history of seizure given. 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 Patient had a meningioma resected in 2003 due to recurrent headaches. Apart from the CT head patient also underwent CT angiogram of the neck with no acute card carotid stenosis seen.patient came to his room at 2 in the morning. He was found to be confused in at noon and was found to be slurring his speech. Nurse documented patient was speaking in Persian. Head CT was done with no acute finding. Neurology consult placed. Echocardiogram ordered. Patient to continue on telemetry while in the hospital. 12/01: MRI of the brain shows evolving 2 cm acute infarct centered in the anterior right thalamus. Echocardiogram reveals EF of 60-65% with borderline concentric left ventricular hypertrophy,mild aortic regurgitation. neurology has recommended changing aspirin to Plavix. PT, OT and speech therapies are ordered. blood sugars are running high as patient did not get his long-acting insulin last evening. There is concern for mild confusion today but patient can answer questions appropriately.etiology is following and will plan for event monitor tomorrow. Objective - Vital Signs Vital signs: Vital Signs Temp 97.0 F L 12/01/17 12:00 Pulse 78 12/01/17 12:00 Resp 16 12/01/17 12:00 BP 157/75 12/01/17 12:00 Pulse Ox 97 12/01/17 12:00 Intake & Output 11/30/17 12/01/17 12/01/17 18:59 06:59 18:59 Intake Total 240 480 476 Output Total 200 Balance 40 480 476 Weight 99.6 kg Intake: Oral 240 480 476 Output: Urine 200 Other: Voiding Method Urinal Urinal Urinal # Voids 2 2 1 - Exam General appearance: cooperative, no acute distress, obese - EENT Eyes: anicteric sclerae, PERRLA, normal appearance ENT: hearing grossly normal - Neck Neck: no lymphadenopathy, normal ROM, no other, no rigidity, no stridor, no thyromegaly - Respiratory Respiratory: bilateral: CTA, negative: diminished, dullness, rales, rhonchi - Cardiovascular Rhythm: regular Heart sounds: normal: S1, S2 Abnormal Heart Sounds: no systolic murmur, no diastolic murmur, no rub, no S3 Gallop, no S4 Gallop, no click, no other - Gastrointestinal General gastrointestinal: normal bowel sounds, soft - Integumentary Integumentary: no rash - Neurologic Neurologic: Dysarthria present. Left lower extremity 4+/5 with left arm drift positive no sensory deficit - Musculoskeletal Musculoskeletal: strength equal bilaterally - Psychiatric Psychiatric: A&O x's 3, appropriate affect - Labs CBC & Chem 7: 12/01/17 07:28 12/01/17 07:28 Labs: Abnormal Lab Results - Last 24 Hours (Table) 11/30/17 11/30/17 11/30/17 Range/Units 13:46 16:43 21:10 Sodium (137-145) mmol/L Glucose (74-99) mg/dL POC Glucose (mg/dL) 205 H 313 H (75-99) mg/dL Hemoglobin A1c 8.8 H (4.0-6.0) % Total Protein (6.3-8.2) g/dL Albumin (3.5-5.0) g/dL HDL Cholesterol (40-60) mg/dL 12/01/17 12/01/17 12/01/17 Range/Units 05:44 07:28 11:14 Sodium 135 L (137-145) mmol/L Glucose 248 H (74-99) mg/dL POC Glucose (mg/dL) 237 H 309 H (75-99) mg/dL Hemoglobin A1c (4.0-6.0) % Total Protein 5.6 L (6.3-8.2) g/dL Albumin 3.1 L (3.5-5.0) g/dL HDL Cholesterol 25 L (40-60) mg/dL Assessment and Plan Plan: 1. acute right thalamus ischemic stroke. neurology consult is appreciated. Aspirin was stopped and patient placed on Plavix. Continue Lipitor 40 mg. Echocardiogram as above. Cardiology will be consult regarding even monitor area 2 CAD: No chest pain or angina continue aspirin, Lipitor, Imdur. Patient could not tolerate beta elizabeth in the past has been off for the last year. 3 type 2 diabetes and insulin: Has been on Lantus and NovoLog decrease Lantus to 30 units at bedtime along with sliding scalePatient will be be continue medication continue with Accu-Chek with sliding scales coverage. 4 hypertension: Remain on losartan 50 mg daily. 5 hyperlipidemia: increase Lipitor to 40 mg by mouth daily. Lipid panel pending 6 severe GERD with GI prophylaxis:continue lansoprazole 30 mg po suri;y 7 severe neuropathy: Has been on gabapentin 200 mg daily at bedtime continue medication and titrate dose if needed. 8 DVT prophylaxis: Patient will be on heparin 5000 units subcutaneous twice a day. CODE STATUS: Full code. Discharge plan: To be determined. PT OT and speech therapies in place. Impression and plan of care have been directed as dictated by the signing physician. Mary Espinosa nurse practitioner acting as scribe for signing physician.
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
[2017-12-01 16:22] LABS: Glucose,Whole Blood 368 mg/dL (75-99)
--- NOTE | 2017-12-01 16:57 | P.PN ---
Subjective Progress Note Date: 12/01/17 Principal diagnosis: Patient is a pleasant 77-year-old male who is being followed by the neurology service for CVA. Patient has history of diabetes mellitus, hypertension, hyperlipidemia, COPD, and excision of meningioma. Patient states he was working in the hot sun picking [employer] in his yard and he went in the house to use the bathroom and fell off the stool. states she went in and found him on the floor and she noted him to have significant slurring of his speech and right facial droop. She called EMS and patient was brought to [facility] for further evaluation. CT angiogram of the head and neck did not reveal any significant flow limiting stenosis. CT scan of the brain revealed an old left watershed infarct but no acute process. Echocardiogram showed an ejection fraction of 60-65%. Patient had an MRI which showed an evolving 2 cm acute infarct anterior right thalamus. Patient continues to have mild dysarthria. At the time of my evaluation, patient is sitting up in the chair at the bedside and appears to be in no acute distress. Objective - Vital Signs Vital signs: Vital Signs Temp 97.0 F L 12/01/17 12:00 Pulse 78 12/01/17 12:00 Resp 16 12/01/17 12:00 BP 157/75 12/01/17 12:00 Pulse Ox 97 12/01/17 12:00 Intake & Output 11/30/17 12/01/17 12/01/17 18:59 06:59 18:59 Intake Total 240 480 476 Output Total 200 Balance 40 480 476 Weight 99.6 kg Intake: Oral 240 480 476 Output: Urine 200 Other: Voiding Method Urinal Urinal Urinal # Voids 2 2 1 - Exam PHYSICAL EXAM: GENERAL APPEARANCE: Patient is a well-developed, male who appears to be in no acute distress. HEENT: Normocephalic, atraumatic, slight facial asymmetry is seen. Neck is supple with no masses felt. CARDIOVASCULAR: Regular rate and rhythm. ABDOMEN: Nontender, nondistended. EXTREMITIES: Show no edema or clubbing. NEUROLOGICAL EXAM: Patient is awake, alert, and oriented 3. Speech is mildly dysarthric and language is normal. Strength is full in all 4 extremities. Sensory exam to light touch is normal in all 4 extremities. Mild right facial droop seen on cranial nerve testing. No tremors or seizure-like activity noted. - Labs CBC & Chem 7: 12/01/17 07:28 08 07:28 Labs: Abnormal Lab Results - Last 24 Hours (Table) 11/30/17 11/30/17 11/30/17 Range/Units 13:46 16:43 21:10 Sodium (137-145) mmol/L Glucose (74-99) mg/dL POC Glucose (mg/dL) 205 H 313 H (75-99) mg/dL Hemoglobin A1c 8.8 H (4.0-6.0) % Total Protein (6.3-8.2) g/dL Albumin (3.5-5.0) g/dL HDL Cholesterol (40-60) mg/dL 12/01/17 12/01/17 12/01/17 Range/Units 05:44 07:28 11:14 Sodium 135 L (137-145) mmol/L Glucose 248 H (74-99) mg/dL POC Glucose (mg/dL) 237 H 309 H (75-99) mg/dL Hemoglobin A1c (4.0-6.0) % Total Protein 5.6 L (6.3-8.2) g/dL Albumin 3.1 L (3.5-5.0) g/dL HDL Cholesterol 25 L (40-60) mg/dL 12/01/17 Range/Units 16:20 Sodium (137-145) mmol/L Glucose (74-99) mg/dL POC Glucose (mg/dL) 368 H (75-99) mg/dL Hemoglobin A1c (4.0-6.0) % Total Protein (6.3-8.2) g/dL Albumin (3.5-5.0) g/dL HDL Cholesterol (40-60) mg/dL Assessment and Plan Plan: Impression: 1. CVA/TIA 2. Dysarthria 3. Facial asymmetry 4. History of meningioma 5. Insulin-dependent diabetes 6. Hypertension 7. CAD 8. COPD Recommendation: Patient did suffer an acute infarct anterior right thalamus region. CTA shows no significant stenosis. EEG was done and results are pending. Serum homocysteine level is pending. If serum homocystine level is elevated I will start him on Foltx daily. His fasting lipid panel was within normal limits except for low HDL of 25. Continue Plavix 75 mg by mouth daily. Continue statin therapy. Continue adequate blood pressure control. Continue neurological checks. Cardiology is following and they're recommending 30 day event monitor. I recommend physical therapy to evaluate and treat. I had a lengthy discussion with the and family today regarding CVA, medications, and plans for rehabilitation. Barring any abnormalities on the EEG, I will continue to follow with you on an as-needed basis. Feel free to call with any questions or concerns. I performed an examination of the patient and discussed the management with the SENIOR CONSTRUCTION PROJECT MANAGER. I have reviewed the SENIOR CONSTRUCTION PROJECT MANAGER notes and agree with the findings and plan of care.
[2017-12-01] MEDS: ASPIRIN 81 MG PO SCH (17:55)
[2017-12-01] MEDS: INSULIN DETEMIR 100 UNIT/ML 10 ML VIAL SQ SCH (18:18)
[2017-12-01] MEDS: MAGNESIUM OXIDE 400 MG TAB PO SCH (20:26)
[2017-12-01] MEDS: GABAPENTIN 100 MG CAP PO SCH (20:26)
[2017-12-01] MEDS: LOSARTAN 50 MG TAB PO SCH (20:27)
[2017-12-01] MEDS: PANTOPRAZOLE 40 MG TABLET PO SCH (20:27)
[2017-12-01] MEDS: ISOSORBIDE MONONITRATE ER 30 MG TAB.ER.24H PO SCH (20:27)
[2017-12-01] MEDS: ATORVASTATIN 40 MG TAB PO SCH (20:27)
[2017-12-01 21:05] VITALS: RESP 18
[2017-12-01 21:05] LABS: Glucose,Whole Blood 351 mg/dL (75-99)
[2017-12-01] MEDS: SODIUM CHLORIDE 0.9% 1,000 ML IV SCH (21:45)
[2017-12-02 06:12] LABS: Glucose,Whole Blood 187 mg/dL (75-99)
[2017-12-02 06:28] LABS: Basophils # (A) 0.1 k/uL (0-0.2); Basophils % (A) 1 %; Eosinophils # (A) 0.6 k/uL (0-0.7); Eosinophils % (A) 7 %; HCT 45.2 % (39.0-53.0); HGB 14.2 gm/dL (13.0-17.5); Lymphocytes # (A) 1.8 k/uL (1.0-4.8); Lymphocytes % (A) 21 %; MCH 28.1 pg (25.0-35.0); MCHC 31.4 g/dL (31.0-37.0); MCV 89.4 fL (80.0-100.0); Mean Platelet Volume 6.5; Monocytes # (A) 0.5 k/uL (0-1.0); Monocytes % (A) 6 %; Neutrophils # (A) 5.3 k/uL (1.3-7.7); Neutrophils % (A) 64 %; Platelet Count 217 k/uL (150-450); RBC 5.05 m/uL (4.30-5.90); RDW 13.2 % (11.5-15.5); WBC 8.3 k/uL (3.8-10.6)
[2017-12-02 06:39] LABS: Albumin 3.5 g/dL (3.5-5.0); Total Bilirubin 0.9 mg/dL (0.2-1.3)
[2017-12-02] MEDS: INSULIN ASPART 100 UNIT/ML 1 ML 10 ML VIAL SQ SCH ×5 (06:53→20:39)
[2017-12-02] MEDS: CLOPIDOGREL 75 MG TAB PO SCH (08:11)
[2017-12-02] MEDS: ASPIRIN 81 MG PO SCH (08:11)
[2017-12-02] MEDS ORDERED: INSULIN ASPART 100 UNIT/ML 1 ML 10 ML VIAL SQ ONE (12:07)
[2017-12-02] MEDS: VIT A,C & E-LUTEIN-MINERALS 1 EACH TAB PO SCH (12:08)
[2017-12-02 12:21] LABS: Glucose,Whole Blood 334 mg/dL (75-99)
--- NOTE | 2017-12-02 13:27 | EEG ---
ELECTROENCEPHALOGRAM REPORT DATE OF SERVICE: 12/01/2017. REASON FOR TESTING: Dizziness and stroke. DESCRIPTION OF THE PROCEDURE: This EEG was performed using a 21 channel digital electroencephalograph, following international 10-20 system. DESCRIPTION OF THE RECORDING: From the beginning of the tracing, with patient's eyes closed, the background rhythm was mostly consisting of 9 Hz alpha frequency in the posterior occipital leads. No obvious asymmetry is seen. Photic stimulation was performed with a minimal driving response seen. No pathological waves were elicited. Occasional movement artifacts are seen. Hyperventilation was not performed. The patient does reach stage II of sleep during the tracing and occasional sleep spindles are seen. No epileptiform discharges were seen. His EKG lead showed a regular rate and rhythm. INTERPRETATION: This asleep and awake EEG can be considered within normal limits. There is no asymmetry seen. No epileptiform discharges were noticed. The absence of epileptiform discharges does not rule out the diagnosis of epilepsy; therefore clinical correlation is recommended. MMAVELL / IJTameka: [id number] /
--- NOTE | 2017-12-02 14:48 | P.PN ---
Subjective Progress Note Date: 12/02/17 This is a 77-year-old gentleman who follows with Dr. Rosado in the office. He has a known history of diabetes, hypertension, hyperlipidemia, COPD , patient developed sudden onset of confusion and dizziness, he had apparently been working in the garden when symptoms started. Patient was also noted to have significant slurring of his speech. For these reasons he came to the emergency room for further evaluation. CT angiography of the head and neck did not reveal any significant flow-limiting stenosis. CAT scan of the brain revealed an old left watershed infarct, para the ventricular white matter ischemic change, no acute intracranial bleed, no acute cranial process. Rest x- ray showed mild increased lung markings with cardiomegaly, currently for early pulmonary edema. EKG showed normal sinus rhythm with no acute changes. CAT scan of the brain did not reveal any acute intracranial abnormality, it did reveal evidence of previous infarct in the left parietal lobe. Echocardiogram with Doppler study was performed which revealed an ejection fraction of 60-65%. MRI shows an evolving 2 cm acute infarct center in the anterior right thalamus. Blood pressure 156/74 heart rate in the 60s to 70s, 97% on room air. White blood cell count 6.7, hemoglobin 15.8, platelet count 223. Sodium 135, potassium 4.7, BUN 17, creatinine 1.0. Troponins negative 2. At the time of my examination, family is at bedside, patient continues to have some slurring of his speech. 12/02/2017 Patient seen and examined this morning, blood pressure 130/60 with a heart rate in the 60s, 95% on room air. Arrangements are being made for the patient to be discharged today. We do recommend patient go with a 30 day event monitor on discharge. Follow-up appointment will be made in the office. Objective - Vital Signs Vital signs: Vital Signs Temp 97 F L 12/02/17 12:00 Pulse 72 12/02/17 12:00 Resp 18 12/02/17 12:00 BP 151/70 12/02/17 12:00 Pulse Ox 95 12/02/17 12:00 Intake & Output 12/01/17 12/02/17 12/02/17 18:59 06:59 18:59 Intake Total 1192 20 480 Balance 1192 20 480 Weight 94.943 kg Intake: IV 20 0.9% NS 20 Oral 1192 480 Other: Voiding Method Urinal Urinal # Voids 1 2 1 - Exam PHYSICAL EXAMINATION: GENERAL: 77-year-old gentleman in no acute distress at the time of my examination HEENT: Head is atraumatic, normocephalic. Pupils equal, round. Sclera anicteric. Conjunctiva are clear. Mucous membranes of the mouth are moist. Neck is supple. There is no elevated jugular venous pressure.] bruit is heard. HEART EXAMINATION: Heart S1 S2 1 systolic murmur is heard. CHEST EXAMINATION: Lungs are clear to auscultation and precussion. No chest wall tenderness is noted on palpation or with deep breathing. ABDOMEN: Soft, nontender. Bowel sounds are heard. No organomegaly noted. EXTREMITIES: 2+ peripheral pulses with no evidence of peripheral edema and no calf tenderness noted. NEUROLOGIC patient is awake alert and oriented 3, dysarthria present, left lower extremity 4 out of 5 with left arm drift noted. - Labs CBC & Chem 7: 12/02/17 05:57 12/02/17 05:57 Labs: Abnormal Lab Results - Last 24 Hours (Table) 12/01/17 12/01/17 12/02/17 Range/Units 16:20 20:55 05:57 Sodium 135 L (137-145) mmol/L Glucose 193 H (74-99) mg/dL POC Glucose (mg/dL) 368 H 351 H (75-99) mg/dL Total Protein 6.0 L (6.3-8.2) g/dL 12/02/17 12/02/17 Range/Units 06:02 11:56 Sodium (137-145) mmol/L Glucose (74-99) mg/dL POC Glucose (mg/dL) 187 H 334 H (75-99) mg/dL Total Protein (6.3-8.2) g/dL Assessment and Plan Plan: Assessment and plan #1 acute CVA, MRI revealed evolving roughly 2 cm acute infarct centered in the anterior right thalamus. #2 hypertension #3 diabetes #4 hyperlipidemia Plan Echocardiogram with Doppler study was performed revealed an ejection fraction of 60-65%. Infarct appears to be in the ophthalmic area, could be secondary to small vessel disease. We would recommend that once the patient is discharged home from the hospital that we place a 30 day event monitor. A follow-up appointment will be made in the office. DNP note has been reviewed, I agree with a documented findings and plan of care. Patient was seen and examined.
[2017-12-02 16:23] LABS: Glucose,Whole Blood 317 mg/dL (75-99)
[2017-12-02] MEDS: INSULIN DETEMIR 100 UNIT/ML 10 ML VIAL SQ SCH (17:27)
[2017-12-02] MEDS ORDERED: INSULIN ASPART 100 UNIT/ML 1 ML 10 ML VIAL SQ SCH (17:30)
[2017-12-02] MEDS: PANTOPRAZOLE 40 MG TABLET PO SCH ×2 (19:38→19:49)
[2017-12-02] MEDS: ISOSORBIDE MONONITRATE ER 30 MG TAB.ER.24H PO SCH (19:38)
[2017-12-02] MEDS: GABAPENTIN 100 MG CAP PO SCH (19:38)
[2017-12-02] MEDS: ATORVASTATIN 40 MG TAB PO SCH (19:38)
[2017-12-02] MEDS: MAGNESIUM OXIDE 400 MG TAB PO SCH (19:38)
[2017-12-02] MEDS: LOSARTAN 50 MG TAB PO SCH (19:38)
[2017-12-02 20:38] LABS: Glucose,Whole Blood 129 mg/dL (75-99)
[2017-12-02] MEDS: SODIUM CHLORIDE 0.9% 1,000 ML IV SCH (21:57)
[2017-12-03 05:41] LABS: Glucose,Whole Blood 131 mg/dL (75-99)
[2017-12-03 06:32] LABS: Basophils % (A) 0 %; Eosinophils # (A) 0.6 k/uL (0-0.7); Eosinophils % (A) 7 %; HCT 43.5 % (39.0-53.0); HGB 14.2 gm/dL (13.0-17.5); Lymphocytes # (A) 1.6 k/uL (1.0-4.8); Lymphocytes % (A) 18 %; MCH 29.2 pg (25.0-35.0); MCHC 32.7 g/dL (31.0-37.0); MCV 89.2 fL (80.0-100.0); Mean Platelet Volume 6.5; Monocytes # (A) 0.5 k/uL (0-1.0); Monocytes % (A) 5 %; Neutrophils # (A) 5.8 k/uL (1.3-7.7); Neutrophils % (A) 67 %; Platelet Count 222 k/uL (150-450); RBC 4.88 m/uL (4.30-5.90); RDW 13.3 % (11.5-15.5); WBC 8.5 k/uL (3.8-10.6)
[2017-12-03 06:54] LABS: ALT 28 U/L (21-72); AST 17 U/L (17-59); Albumin 3.2 g/dL (3.5-5.0); Alkaline Phosphatase 70 U/L (38-126); Anion Gap 8 mmol/L; Blood Urea Nitrogen 23 mg/dL (9-20); Calcium 8.8 mg/dL (8.4-10.2); Carbon Dioxide 26 mmol/L (22-30); Chloride 102 mmol/L (98-107); Glucose 138 mg/dL (74-99); Potassium 4.7 mmol/L (3.5-5.1); Sodium 136 mmol/L (137-145); Total Bilirubin 0.6 mg/dL (0.2-1.3); Total Protein 5.5 g/dL (6.3-8.2)
[2017-12-03] MEDS: INSULIN ASPART 100 UNIT/ML 1 ML 10 ML VIAL SQ SCH ×3 (07:01→12:38)
[2017-12-03] MEDS ORDERED: INSULIN ASPART 100 UNIT/ML 1 ML 10 ML VIAL SQ SCH (07:30)
[2017-12-03] MEDS: ASPIRIN 81 MG PO SCH (08:42)
[2017-12-03] MEDS: CLOPIDOGREL 75 MG TAB PO SCH (08:42)
--- NOTE | 2017-12-03 09:02 | P.PN ---
Subjective Progress Note Date: 12/02/17 76-year-old male patient of Dr. Lopez with past medical history of CAD COPD insulin-dependent diabetes hyperlipidemia hypertension and osteoarthritis who had multiple abdominal surgery with previous history of partial obstruction with multiple adhesion in the past. patient was doing well until yesterday afternoon when he had sudden onset of confusion and dizziness and had of all in the bathroom. Patient was dizzy but did not lose consciousness. Patient has been actively working in the garden on and does get hypoglycemic in the past. Glucose could not be checked as pupil meter was not working. EMS gave patient some dextrose which improved the glucose when patient came to the ER. Patient was found to be increasingly weak and had slurring of speech intermittently. He denies any confusion, loss of motor or sensory function. Patient denies any previous episodes. No history of seizure given. 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 Patient had a meningioma resected in 2003 due to recurrent headaches. Apart from the CT head patient also underwent CT angiogram of the neck with no acute card carotid stenosis seen.patient came to his room at 2 in the morning. He was found to be confused in at noon and was found to be slurring his speech. Nurse documented patient was speaking in German. Head CT was done with no acute finding. Neurology consult placed. Echocardiogram ordered. Patient to continue on telemetry while in the hospital. 12/01: MRI of the brain shows evolving 2 cm acute infarct centered in the anterior right thalamus. Echocardiogram reveals EF of 60-65% with borderline concentric left ventricular hypertrophy,mild aortic regurgitation. neurology has recommended changing aspirin to Plavix. PT, OT and speech therapies are ordered. blood sugars are running high as patient did not get his long-acting insulin last evening. There is concern for mild confusion today but patient can answer questions appropriately.etiology is following and will plan for event monitor tomorrow. 12/02: Plan is for patient to be discharged on Plavix and we will discontinue aspirin. Hydrochlorothiazide has been stopped. Blood sugars have been elevated in the 300s and patient resumed back on his NovoLog scheduled with meals. Event monitor to be placed by cardiology. PT has cleared him for discharge home. Patient is quite sleepy after taking a shower. Plan is for discharge tomorrow as they are sending things up at home stay at the daughter's Objective - Vital Signs Vital signs: Vital Signs Temp 97.4 F L 12/02/17 20:00 Pulse 63 12/03/17 04:00 Resp 18 12/03/17 04:00 BP 121/56 12/03/17 04:00 Pulse Ox 96 12/03/17 04:00 Intake & Output 12/02/17 12/03/17 12/03/17 18:59 06:59 18:59 Intake Total 720 495 240 Balance 720 495 240 Weight 94.943 kg 94.6 kg Intake: IV 15 0.9% NS 15 Oral 720 480 240 Other: Voiding Method Urinal # Voids 1 - Exam General appearance: cooperative, no acute distress, obese - EENT Eyes: anicteric sclerae, PERRLA, normal appearance ENT: hearing grossly normal - Neck Neck: no lymphadenopathy, normal ROM, no other, no rigidity, no stridor, no thyromegaly - Respiratory Respiratory: bilateral: CTA, negative: diminished, dullness, rales, rhonchi - Cardiovascular Rhythm: regular Heart sounds: normal: S1, S2 Abnormal Heart Sounds: no systolic murmur, no diastolic murmur, no rub, no S3 Gallop, no S4 Gallop, no click, no other - Gastrointestinal General gastrointestinal: normal bowel sounds, soft - Integumentary Integumentary: no rash - Neurologic Neurologic: Dysarthria present. Left lower extremity 4+/5 with left arm drift positive no sensory deficit - Musculoskeletal Musculoskeletal: strength equal bilaterally - Psychiatric Psychiatric: A&O x's 3, appropriate affect - Labs CBC & Chem 7: 12/03/17 06:13 12/03/17 06:13 Labs: Abnormal Lab Results - Last 24 Hours (Table) 12/02/17 12/02/17 12/02/17 Range/Units 11:56 16:20 20:37 Sodium (137-145) mmol/L BUN (9-20) mg/dL Glucose (74-99) mg/dL POC Glucose (mg/dL) 334 H 317 H 129 H (75-99) mg/dL Total Protein (6.3-8.2) g/dL Albumin (3.5-5.0) g/dL 12/03/17 12/03/17 Range/Units 05:40 06:13 Sodium 136 L (137-145) mmol/L BUN 23 H (9-20) mg/dL Glucose 138 H (74-99) mg/dL POC Glucose (mg/dL) 131 H (75-99) mg/dL Total Protein 5.5 L (6.3-8.2) g/dL Albumin 3.2 L (3.5-5.0) g/dL Assessment and Plan Plan: 1. acute right thalamus ischemic stroke. neurology consult is appreciated. Aspirin was stopped and patient placed on Plavix. Continue Lipitor 40 mg. Echocardiogram as above. Cardiology will be consult regarding event monitor. Neurology consult is appreciated. 2 CAD: No chest pain or angina continue aspirin, Lipitor, Imdur. Patient could not tolerate beta elizabeth in the past has been off for the last year. 3 type 2 diabetes and insulin: Has been on Lantus and NovoLog. Lantus was decreased to 30 units at bedtime. Scheduled NovoLog added back in. Continue scale. 4 hypertension: Remain on losartan 50 mg daily. 5 hyperlipidemia: increase Lipitor to 40 mg by mouth daily. Lipid panel pending 6 severe GERD with GI prophylaxis:continue lansoprazole 30 mg po suri;y 7 severe diabetic neuropathy: Has been on gabapentin 200 mg daily at bedtime continue medication and titrate dose if needed. 8 DVT prophylaxis: Patient will be on heparin 5000 units subcutaneous twice a day. CODE STATUS: Full code. Discharge plan: Daughter's home with home care tomorrow. Impression and plan of care have been directed as dictated by the signing physician. Mary Espinosa nurse practitioner acting as scribe for signing physician.
[2017-12-03 11:08] VITALS: TEMP 97.1
[2017-12-03 11:38] LABS: Glucose,Whole Blood 310 mg/dL (75-99)
[2017-12-03] MEDS: VIT A,C & E-LUTEIN-MINERALS 1 EACH TAB PO SCH (12:37)
[2017-12-03 14:07] VITALS: BP 130/62; PULSE 48
--- NOTE | 2017-12-03 16:20 | P.DS ---
Providers Date of admission: 11/29/17 23:16 Expected date of discharge: 12/03/17 Attending physician: Ihsan Garcia MD Consults: 11/30/17 14:13 Consult Physician Stat Consulting Provider: Brett Estrada Consult Reason/Comments: CVA Do you want consulting provider notified?: Yes 12/01/17 11:21 Consult Physician Routine Consulting Provider: Domingo Rosado Consult Reason/Comments: stroke Do you want consulting provider notified?: Yes Primary care physician: [facility] Course: 76-year-old male patient of Dr. Lopez with past medical history of CAD COPD insulin-dependent diabetes hyperlipidemia hypertension and osteoarthritis who had multiple abdominal surgery with previous history of partial obstruction with multiple adhesion in the past. patient was doing well until yesterday afternoon when he had sudden onset of confusion and dizziness and had of all in the bathroom. Patient was dizzy but did not lose consciousness. Patient has been actively working in the garden on and does get hypoglycemic in the past. Glucose could not be checked as pupil meter was not working. EMS gave patient some dextrose which improved the glucose when patient came to the ER. Patient was found to be increasingly weak and had slurring of speech intermittently. He denies any confusion, loss of motor or sensory function. Patient denies any previous episodes. No history of seizure given. 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 Patient had a meningioma resected in 2003 due to recurrent headaches. Apart from the CT head patient also underwent CT angiogram of the neck with no acute card carotid stenosis seen.patient came to his room at 2 in the morning. He was found to be confused in at noon and was found to be slurring his speech. Nurse documented patient was speaking in [place]. Head CT was done with no acute finding. Neurology consult placed. Echocardiogram ordered. Patient to continue on telemetry while in the hospital. 12/01: MRI of the brain shows evolving 2 cm acute infarct centered in the anterior right thalamus. Echocardiogram reveals EF of 60-65% with borderline concentric left ventricular hypertrophy,mild aortic regurgitation. neurology has recommended changing aspirin to Plavix. PT, OT and speech therapies are ordered. blood sugars are running high as patient did not get his long-acting insulin last evening. There is concern for mild confusion today but patient can answer questions appropriately.etiology is following and will plan for event monitor tomorrow. 12/02: Plan is for patient to be discharged on Plavix and we will discontinue aspirin. Hydrochlorothiazide has been stopped. Blood sugars have been elevated in the 300s and patient resumed back on his NovoLog scheduled with meals. Event monitor to be placed by cardiology. PT has cleared him for discharge home. Patient is quite sleepy after taking a shower. Plan is for discharge tomorrow as they are setting things up at home stay at the daughter's 12/03: Patient is discharged home today in stable condition. No medication changes to medication reconciliation. Discharge diagnoses: 1. acute right thalamus ischemic stroke. 2 CAD 3 type 2 diabetes uncontrolled with hyperglycemia, insulin requiring 4 hypertension 5 hyperlipidemia 6 severe GERD 7 severe diabetic neuropathy Discharge plan: Daughter's home with [facility] Impression and plan of care have been directed as dictated by the signing physician. Mary Espinosa nurse practitioner acting as scribe for signing physician. Patient Condition at Discharge: Good Plan - Discharge Summary New Discharge Prescriptions: New Clopidogrel [Plavix] 75 mg PO DAILY #30 tab Losartan [Cozaar] 50 mg PO HS #30 tab Atorvastatin [Lipitor] 40 mg PO HS #30 tab Continue Lansoprazole [Prevacid] 30 mg PO HS Isosorbide Mononitrate ER [Imdur] 30 mg PO HS Insulin Glargine [Lantus] 58 unit SQ AC-SUPPER Gabapentin [Neurontin] 200 mg PO HS Naproxen Sodium 220 mg PO BID PRN PRN Reason: Pain Potassium 595 mg PO HS Bisacodyl [Dulcolax] 10 mg PO ONCE PRN PRN Reason: Constipation Magnesium Oxide [Mag-Ox] 250 mg PO HS Insulin Aspart [NovoLOG (formulary)] 12 unit SQ AC-BRKFST Insulin Aspart [NovoLOG (formulary)] 17 unit SQ AC-SUPPER Insulin Aspart [NovoLOG (formulary)] 12 unit SQ AC-LUNCH C,E,Zinc,Copper 11/Acgeh0l/Lut [Ocuvite Adult 50 Plus Softgel] 1 cap PO DAILY Discontinued Simvastatin [Zocor] 20 mg PO HS Losartan-Hctz 50-12.5 mg [Hyzaar 50-12.5] 1 tab PO DAILY Discharge Medication List Gabapentin [Neurontin] 200 mg PO HS 08/02/15 [History] Insulin Glargine [Lantus] 58 unit SQ AC-SUPPER 08/02/15 [History] Isosorbide Mononitrate ER [Imdur] 30 mg PO HS 08/02/15 [History] Lansoprazole [Prevacid] 30 mg PO HS 08/02/15 [History] Naproxen Sodium 220 mg PO BID PRN 02/16/16 [History] Potassium 595 mg PO HS 12/07/16 [History] Bisacodyl [Dulcolax] 10 mg PO ONCE PRN 06/01/17 [History] C,E,Zinc,Copper 11/Unlbg1q/Lut [Ocuvite Adult 50 Plus Softgel] 1 cap PO DAILY [History] Insulin Aspart [NovoLOG (formulary)] 12 unit SQ AC-BRKFST 06/01/17 [History] Insulin Aspart [NovoLOG (formulary)] 12 unit SQ AC-LUNCH 06/01/17 [History] Insulin Aspart [NovoLOG (formulary)] 17 unit SQ AC-SUPPER 06/01/17 [History] Magnesium Oxide [Mag-Ox] 250 mg PO HS 06/01/17 [History] Atorvastatin [Lipitor] 40 mg PO HS #30 tab 12/02/17 [Rx] Clopidogrel [Plavix] 75 mg PO DAILY #30 tab 12/02/17 [Rx] Losartan [Cozaar] 50 mg PO HS #30 tab 12/02/17 [Rx] Follow up Appointment(s)/Referral(s): Domingo Rosado MD [STAFF PHYSICIAN] - 01/09/18 2:15 pm Breezy Lopez MD [Primary Care Provider] - 12/10/17 1:15 pm (Friday with [employer]) [facility], [NON-STAFF] - Brett Estrada MD [STAFF PHYSICIAN] - 1 Week ( Office will call with follow up appointment.) Patient Instructions/Handouts: Stroke (DC) Activity/Diet/Wound Care/Special Instructions: [facility] is mailing event monitor to home address, upon receiving bring to office if help is needed to put it on. Discharge Disposition: HOME WITH HOME HEALTH SERVICES
== END 2017-12-03 14:00 | disposition home health service (06) | DRG 66 ==
LOC: EC 18:54 → 5MS5E 23:16 → 6SEL 11-30 15:01 → OBSVTOIN 12-01 15:49
PROVIDERS: ADMIT Internal Medicine; ATTEND Internal Medicine
DX: I63.9 Cerebral infarction, unspecified (principal); E11.649 Type 2 diabetes mellitus with hypoglycemia without coma; I11.9 Hypertensive heart disease without heart failure; E11.40 Type 2 diabetes mellitus with diabetic neuropathy, unspecified; E11.65 Type 2 diabetes mellitus with hyperglycemia; I35.1 Nonrheumatic aortic (valve) insufficiency; J43.9 Emphysema, unspecified; R47.81 Slurred speech; R47.1 Dysarthria and anarthria; R40.2362 Coma scale, best motor response, obeys commands, at arrival to emergency department; R40.2142 Coma scale, eyes open, spontaneous, at arrival to emergency department; R40.2252 Coma scale, best verbal response, oriented, at arrival to emergency department; R29.702 NIHSS score 2; E78.5 Hyperlipidemia, unspecified; I25.10 Atherosclerotic heart disease of native coronary artery without angina pectoris; M19.91 Primary osteoarthritis, unspecified site; J30.2 Other seasonal allergic rhinitis; K21.9 Gastro-esophageal reflux disease without esophagitis; I83.93 Asymptomatic varicose veins of bilateral lower extremities; Z79.82 Long term (current) use of aspirin; Z79.4 Long term (current) use of insulin; Z87.820 Personal history of traumatic brain injury; Z87.81 Personal history of (healed) traumatic fracture; Z79.899 Other long term (current) drug therapy; Z96.1 Presence of intraocular lens; Z87.891 Personal history of nicotine dependence; Z86.011 Personal history of benign neoplasm of the brain; Z98.41 Cataract extraction status, right eye; Z98.42 Cataract extraction status, left eye; Z90.49 Acquired absence of other specified parts of digestive tract; Z88.5 Allergy status to narcotic agent; Z91.040 Latex allergy status; Z82.49 Family history of ischemic heart disease and other diseases of the circulatory system; Z80.0 Family history of malignant neoplasm of digestive organs
CPT/HCPCS: 36415; 70450; 70496; 70498; 70553; 71046; 80053; 80061; 80306; 81003; 82550; 82553; 83036; 83090; 84484; 85025; 85610; 85730; 93005; 93306; 95819; 96360; 96361; 99285

== ENCOUNTER → 2018-03-18 | Outpatient (CLI) | payer MEDICARE ==
[2018-03-18 18:53] LABS: T4, Free (Free Thyroxine) 1.2 ng/dL (0.80-1.80)
== END | disposition home or self-care (01) ==
LOC: LABWHC1 13:41
PROVIDERS: ATTEND Psychiatry & Neurology Pain Medicine
DX: R41.3 Other amnesia (principal)
CPT/HCPCS: 36415; 82607; 84439; 84443; 84481

== ENCOUNTER → 2018-06-01 | Outpatient (CLI) | payer MEDICARE ==
[2018-06-01 21:15] LABS: Hemoglobin A1C 7.7 % (4.0-6.0)
[2018-06-01 21:24] LABS: Albumin 3.8 g/dL (3.80-4.90); Albumin/Globulin Ratio 1.9 (1.60-3.17); Calcium 8.7 mg/dL (8.7-10.3); LDL Cholesterol,Calculated 61.8 mg/dL (0.0-131.0); Potassium 5.1 mmol/L (3.5-5.5); Total Protein 5.8 g/dL (6.2-8.2); VLDL Calculation 13.2 mg/dL (5.00-40.00)
== END | disposition home or self-care (01) ==
LOC: LABWHC1 12:06
PROVIDERS: ATTEND Internal Medicine Endocrinology, Diabetes & Metabolism
DX: E11.65 Type 2 diabetes mellitus with hyperglycemia (principal); I63.9 Cerebral infarction, unspecified
CPT/HCPCS: 36415; 80053; 80061; 82043; 82570; 83036; 84443

== ENCOUNTER → 2018-10-13 | Outpatient (CLI) | payer MEDICARE ==
[2018-10-13 14:22] LABS: Basophils # (A) 0.1 k/uL (0-0.2); Basophils % (A) 1 %; Eosinophils # (A) 0.5 k/uL (0-0.7); Eosinophils % (A) 8 %; HCT 48.1 % (39.0-53.0); HGB 15.1 gm/dL (13.0-17.5); Lymphocytes # (A) 1.4 k/uL (1.0-4.8); Lymphocytes % (A) 20 %; MCH 29.4 pg (25.0-35.0); MCHC 31.5 g/dL (31.0-37.0); MCV 93.6 fL (80.0-100.0); Mean Platelet Volume 6.9; Monocytes # (A) 0.3 k/uL (0-1.0); Monocytes % (A) 5 %; Neutrophils # (A) 4.4 k/uL (1.3-7.7); Neutrophils % (A) 65 %; Platelet Count 179 k/uL (150-450); RBC 5.14 m/uL (4.30-5.90); RDW 14.3 % (11.5-15.5); WBC 6.8 k/uL (3.8-10.6)
[2018-10-13 18:32] LABS: Iron Saturation 32.97 (15.00-50.00)
[2018-10-13 18:36] LABS: African American GFR (CKD) 82.6 (60.0-200.0); Albumin 3.9 g/dL (3.80-4.90); Albumin/Globulin Ratio 2.05 (1.60-3.17); Anion Gap 8.7 mmol/L (4.00-12.00); Calcium 8.9 mg/dL (8.7-10.3); Carbon Dioxide 27.3 mmol/L (21.6-31.8); Globulin 1.9 g/dL (1.6-3.3); LDL Cholesterol,Calculated 62.6 mg/dL (0.0-131.0); Potassium 4.6 mmol/L (3.5-5.5); Total Bilirubin 1.3 mg/dL (0.2-1.2); Total Protein 5.8 g/dL (6.2-8.2); Uric Acid 4.9 mg/dL (3.7-8.7); VLDL Calculation 15.4 mg/dL (5.00-40.00)
[2018-10-13 20:04] LABS: Hemoglobin A1C 7.8 % (4.0-6.0)
== END | disposition home or self-care (01) ==
LOC: LABWHC1 13:22
PROVIDERS: ATTEND Psychiatry & Neurology Pain Medicine
DX: E78.2 Mixed hyperlipidemia (principal); N18.9 Chronic kidney disease, unspecified; E11.65 Type 2 diabetes mellitus with hyperglycemia; E11.22 Type 2 diabetes mellitus with diabetic chronic kidney disease; Z86.73 Personal history of transient ischemic attack (TIA), and cerebral infarction without residual deficits
CPT/HCPCS: 36415; 80053; 80061; 82607; 83036; 83540; 83550; 84207; 84439; 84443; 84466; 84481; 84550; 85025

== ENCOUNTER → 2019-01-13 | Outpatient (CLI) | payer MEDICARE ==
--- NOTE | 2019-01-13 14:34 | CT ---
EXAMINATION TYPE: CT lumbar spine wo con DATE OF EXAM: 01/13/2019 2:15 PM COMPARISON: CT abdomen and pelvis June 01, 2017 HISTORY: Low back pain CT DLP: 994.4 mGycm Automated exposure control for dose reduction was used. Unenhanced CT of the lumbar spine was performed. Bone and soft tissue window settings are submitted as well as coronal and sagittal reconstructions. There are 5 lumbar type vertebra redemonstrated. Lumbar spine demonstrates satisfactory alignment wit hout evidence of acute fracture or dislocation. There is mild disc space narrowing L2-L3, L3-L4, and L5-S1 levels redemonstrated. Vertebral body heights are maintained. Vacuum disc phenomenon L5-S1 leve ls again seen. There is mild multilevel anterior lateral spurring. Spinal canal is grossly preserved. Axial images show and T12-L1 and L1-L2 level to appear within normal limits. Axial images at L2-L3 level show mild broad disc bulge mildly effacing the anterior thecal sac, bilat eral neural foramina are patent. Axial images at L3-L4 levels and mild facet degenerative changes bilaterally. There is mild broad dis c bulge mildly effacing the anterior thecal sac. Bilateral neuroforamina are patent. Axial images at the L4-L5 level and clmy-kn-uylstuxv facet degenerative changes and ligamentum flavum hypertrophy. There is qxta-cf-uxyybnci broad-based posterior disc protrusion effacing the anterior t hecal sac. There is mild left greater than right bilateral neural foraminal narrowing. Axial images at the L5-S1 level show yaag-cl-ipifkoom right greater than left facet degenerative simpson ges. Spinal canal is preserved. There is mild to moderate right-sided neural foraminal narrowing. Lef t-sided neural foramen is patent. Paraspinal muscle bulk is maintained. Please refer to same day CT abdomen and pelvis report for compl ete details of structures outside the spine. IMPRESSION: Multilevel degenerative changes as detailed above. No significant change or progression f rom June 01, 2017 CT.
--- NOTE | 2019-01-13 14:41 | CT ---
EXAMINATION TYPE: CT abdomen pelvis wo con DATE OF EXAM: 01/13/2019 HISTORY: hematuria, low back pain CT DLP: 994.4 mGycm. Automated Exposure Control for Dose Reduction was Utilized. TECHNIQUE: CT scan of the abdomen and pelvis is performed without oral or IV contrast. COMPARISON: CT abdomen and pelvis study June 01, 2017 FINDINGS: Within the limitations of a non-contrast study, the following observations are made. LUNG BASES:. Coronary artery calcification is present which is noted marker for underlying coronary a rtery disease. LIVER/GB: Cholecystectomy clips are redemonstrated. PANCREAS: Mild to moderate generalized fat replaced atrophy is thought progressed from prior. SPLEEN: No significant abnormality is seen. ADRENALS: No significant abnormality is seen. KIDNEYS: Some cortical thinning bilaterally. No renal calculi or hydronephrosis is seen bilaterally BOWEL:. There is redemonstration of ring shaped balloon inflated structure distal esophagus. Overlyin g anterior inferior aspect of this there is persistent metallic density with streak artifact axial im age 16 unchanged from prior presumed foreign body or post surgical device. No suspicious small or lar ge bowel dilatation. Slight redundancy of fecal filled sigmoid colon with occasional diverticula. No CT evidence for acute diverticulitis. GENITAL ORGANS: Upper limits of normal in size. LYMPH NODES: No greater than 1cm abdominal or pelvic lymph nodes are appreciated. OSSEOUS STRUCTURES: Please refer to same day CT lumbar spine report for complete details of the lumba r spine. Mild to moderate axial narrowing of both hip joints redemonstrated. Sclerotic focus left pro ximal femur coronal image 66 is stable presumed benign bone island. OTHER: Small fat-containing left inguinal hernia is redemonstrated. Moderate calcified plaque of the aorta extends into branch vessels. 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 IMPRESSION: No suspicious mass or calculus seen to account for the patient's symptoms of hematuria. A dvised urology referral for further workup.
== END | disposition home or self-care (01) ==
LOC: RADCTMAIN 13:09
PROVIDERS: ATTEND Psychiatry & Neurology Neurology
DX: M47.897 Other spondylosis, lumbosacral region (principal); R31.9 Hematuria, unspecified
CPT/HCPCS: 72131; 74176

== ENCOUNTER → 2019-01-13 | Outpatient (CLI) | payer MEDICARE | LOC: RADCTMAIN 13:13 | PROVIDERS: ATTEND Internal Medicine Geriatric Medicine | DX: Z53.9 Procedure and treatment not carried out, unspecified reason (principal) ==

== ENCOUNTER → 2019-01-26 | Outpatient (CLI) | payer MEDICARE ==
[2019-01-26 13:15] LABS: Basophils % (A) 1 %; Eosinophils # (A) 0.5 k/uL (0-0.7); Eosinophils % (A) 7 %; HCT 45.1 % (39.0-53.0); HGB 14.9 gm/dL (13.0-17.5); Lymphocytes # (A) 1.5 k/uL (1.0-4.8); Lymphocytes % (A) 23 %; MCH 30.5 pg (25.0-35.0); MCV 92.5 fL (80.0-100.0); Mean Platelet Volume 6.1; Monocytes # (A) 0.4 k/uL (0-1.0); Monocytes % (A) 6 %; Neutrophils # (A) 4.1 k/uL (1.3-7.7); Neutrophils % (A) 63 %; Platelet Count 179 k/uL (150-450); RBC 4.87 m/uL (4.30-5.90); RDW 13.5 % (11.5-15.5); WBC 6.6 k/uL (3.8-10.6)
[2019-01-26 21:18] LABS: Hemoglobin A1C 7.2 % (4.0-6.0)
[2019-01-27 04:23] LABS: African American GFR (CKD) 73.1 (60.0-200.0); Albumin/Globulin Ratio 2.22 (1.60-3.17); Anion Gap 12.6 mmol/L (4.00-12.00); BUN/Creat Ratio 22.73 Ratio (12.00-20.00); Calcium 9.1 mg/dL (8.7-10.3); Carbon Dioxide 25.4 mmol/L (21.6-31.8); Chol/HDL Ratio 2.73; Globulin 1.8 g/dL (1.6-3.3); LDL Cholesterol,Calculated 41.6 mg/dL (0.0-131.0); Potassium 5.1 mmol/L (3.5-5.5); Total Bilirubin 0.8 mg/dL (0.2-1.2); Total Protein 5.8 g/dL (6.2-8.2); VLDL Calculation 10.4 mg/dL (5.00-40.00)
== END | disposition home or self-care (01) ==
LOC: LABWHC1 11:42
PROVIDERS: ATTEND Internal Medicine Endocrinology, Diabetes & Metabolism
DX: E78.2 Mixed hyperlipidemia (principal); N18.3 Chronic kidney disease, stage 3 (moderate); I25.10 Atherosclerotic heart disease of native coronary artery without angina pectoris; E11.65 Type 2 diabetes mellitus with hyperglycemia; E11.22 Type 2 diabetes mellitus with diabetic chronic kidney disease
CPT/HCPCS: 36415; 80053; 80061; 83036; 84403; 84439; 84443; 85025

== ENCOUNTER → 2020-05-11 | Outpatient (CLI) | payer MEDICARE ==
[2020-05-11 14:56] LABS: Basophils # (A) 0.1 k/uL (0-0.2); Basophils % (A) 1 %; Eosinophils # (A) 0.5 k/uL (0-0.7); Eosinophils % (A) 7 %; HCT 42.7 % (39.0-53.0); HGB 13.3 gm/dL (13.0-17.5); Hypochromasia Slight; Lymphocytes # (A) 1.6 k/uL (1.0-4.8); Lymphocytes % (A) 20 %; MCH 28.4 pg (25.0-35.0); MCHC 31.2 g/dL (31.0-37.0); MCV 90.9 fL (80.0-100.0); Mean Platelet Volume 7.3; Monocytes # (A) 0.4 k/uL (0-1.0); Monocytes % (A) 5 %; Neutrophils # (A) 5.2 k/uL (1.3-7.7); Neutrophils % (A) 66 %; Platelet Count 214 k/uL (150-450); RBC 4.69 m/uL (4.30-5.90); RDW 14.6 % (11.5-15.5); WBC 7.9 k/uL (3.8-10.6)
[2020-05-12 02:33] LABS: % Iron Saturation 14.38 (15.00-50.00); African American GFR (CKD) 54.2 (60.0-200.0); BUN/Creat Ratio 23.57 Ratio (12.00-20.00); Chol/HDL Ratio 3.81; Folate, Serum 22.6 ng/mL; LDL Cholesterol,Calculated 60.2 mg/dL (0.0-131.0); Non-African American GFR(CKD) 46.8 (60.0-200.0); Potassium 4.7 mmol/L (3.5-5.5); Prostate Specific Antigen 3.7 ng/mL (0.0-6.5); Total Bilirubin 0.8 mg/dL (0.3-1.2); VLDL Calculation 12.8 mg/dL (5.00-40.00)
[2020-05-12 04:20] LABS: Hemoglobin A1C 8.9 % (4.0-6.0)
[2020-05-15 13:28] LABS: Vit B1(Thiamine) 84 ug/L (38-122)
[2020-05-17 07:08] LABS: Nicotinamide 15 ng/mL; Nicotinic Acid None Detected; Nicotinuric Acid None Detected
== END | disposition home or self-care (01) ==
LOC: LABWHC1 13:33
PROVIDERS: ATTEND Internal Medicine Endocrinology, Diabetes & Metabolism
DX: E11.65 Type 2 diabetes mellitus with hyperglycemia (principal); I25.10 Atherosclerotic heart disease of native coronary artery without angina pectoris; D63.1 Anemia in chronic kidney disease; N40.0 Benign prostatic hyperplasia without lower urinary tract symptoms; N18.30 Chronic kidney disease, stage 3 unspecified; R53.83 Other fatigue; Z51.81 Encounter for therapeutic drug level monitoring
CPT/HCPCS: 36415; 80053; 80061; 82607; 82668; 82728; 82746; 83036; 83540; 83550; 84153; 84207; 84403; 84425; 84443; 84466; 84481; 84591; 85025; 85045

== ENCOUNTER 2021-07-07 16:28 | Emergency (ER) | payer MEDICARE ==
[2021-07-07 16:40] VITALS: BP 130/61; PULSE 66; TEMP 97.2
[2021-07-07] MEDS ORDERED: MORPHINE SULFATE 4 MG/ML SYRINGE IVP STA (17:27)
[2021-07-07 17:33] VITALS: RESP 20
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
[2021-07-07 18:09] LABS: Albumin 3.4 g/dL (3.5-5.0); Calcium 8.7 mg/dL (8.4-10.2); Total Protein 6.6 g/dL (6.3-8.2)
[2021-07-07 18:10] LABS: Potassium 5.5 mmol/L (3.5-5.1)
[2021-07-07 18:14] LABS: Anisocytosis Slight; Basophils # (A) 0.1 k/uL (0-0.2); Basophils % (A) 1 %; Eosinophils # (A) 0.3 k/uL (0-0.7); Eosinophils % (A) 4 %; HCT 40.2 % (39.0-53.0); HGB 11.5 gm/dL (13.0-17.5); Hypochromasia Marked; Lymphocytes # (A) 1.2 k/uL (1.0-4.8); Lymphocytes % (A) 15 %; MCH 23.2 pg (25.0-35.0); MCHC 28.5 g/dL (31.0-37.0); MCV 81.3 fL (80.0-100.0); Mean Platelet Volume 7.4; Monocytes # (A) 0.4 k/uL (0-1.0); Monocytes % (A) 5 %; Neutrophils # (A) 5.8 k/uL (1.3-7.7); Neutrophils % (A) 74 %; Platelet Count 281 k/uL (150-450); RBC 4.95 m/uL (4.30-5.90); RDW 16.7 % (11.5-15.5); WBC 7.9 k/uL (3.8-10.6)
[2021-07-07 18:17] LABS: Partial Thromboplastin Time 22.2 sec (22.0-30.0); Prothrombin Time 10.9 sec (9.0-12.0)
--- NOTE | 2021-07-07 18:57 | XR ---
EXAMINATION TYPE: XR ribs LT w pa chest xray DATE OF EXAM: 07/07/2021 COMPARISON: Chest x-ray 11/29/2017 HISTORY: Pain short of breath. Fall. TECHNIQUE: 5 views FINDINGS: Heart is enlarged. There is some mild interstitial fibrotic changes in the lungs. No heart failure seen. No pleural effusion or pneumothorax. No rib fractures seen. Thoracic aorta is atheromat ous. IMPRESSION: No active cardiopulmonary disease. No rib fracture seen. Fibrotic changes in the right up per lobe appear new compared to last exam.
[2021-07-07] MEDS ORDERED: LIDOCAINE 5% PATCH TOPICAL STA (19:24)
[2021-07-07] MEDS ORDERED: HYDROmorphone 1 MG/ML 1 ML SYRINGE IVP STA (19:29)
[2021-07-07] MEDS ORDERED: ACET/COD 300 MG/30 MG STARTER PACK 6 TAB BTL PO STA (19:30)
== END 2021-07-07 19:55 | disposition home or self-care (01) ==
LOC: EC 16:28
DX: R07.89 Other chest pain (principal); I25.10 Atherosclerotic heart disease of native coronary artery without angina pectoris; J44.9 Chronic obstructive pulmonary disease, unspecified; E11.9 Type 2 diabetes mellitus without complications; E78.5 Hyperlipidemia, unspecified; I10 Essential (primary) hypertension; M19.90 Unspecified osteoarthritis, unspecified site; Z79.4 Long term (current) use of insulin; Z79.02 Long term (current) use of antithrombotics/antiplatelets; Z91.040 Latex allergy status; Z88.5 Allergy status to narcotic agent; Z90.49 Acquired absence of other specified parts of digestive tract
CPT/HCPCS: 99285; 96374; 96375; 36415; 93005; 83880; 80053; 83605; 84484; 85025; 85610; 85730; 71101; J2270; J1170

== ENCOUNTER 2021-08-31 15:56 | Emergency (ER) | payer MEDICARE ==
[2021-08-31 16:08] VITALS: TEMP 97.7
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
[2021-08-31 21:33] VITALS: BP 141/74; PULSE 87; RESP 18
== END 2021-08-31 21:34 | disposition home or self-care (01) ==
LOC: EC 15:56
DX: Z20.822 Contact with and (suspected) exposure to COVID-19 (principal); J44.9 Chronic obstructive pulmonary disease, unspecified; E11.9 Type 2 diabetes mellitus without complications; I10 Essential (primary) hypertension; M19.90 Unspecified osteoarthritis, unspecified site; Z91.040 Latex allergy status; Z88.5 Allergy status to narcotic agent; Z79.899 Other long term (current) drug therapy; Z79.4 Long term (current) use of insulin
CPT/HCPCS: 87635; 99283

== ENCOUNTER 2024-10-21 20:19 | Emergency (ER) | payer MEDICARE ==
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
[2024-10-21 22:00] VITALS: RESP 18
[2024-10-21 22:20] LABS: Basophils # (A) 0.07 10*3/uL (0.00-0.10); Eosinophils # (A) 0.34 10*3/uL (0.04-0.35); Eosinophils % (A) 4.7 %; HCT 45.5 % (39.6-50.0); HGB 14.6 g/dL (13.0-17.0); Lymphocytes # (A) 1.84 10*3/uL (0.90-5.00); Lymphocytes % (A) 25.6 %; MCH 30.1 pg (27.0-32.0); MCHC 32.1 g/dL (32.0-37.0); MCV 93.8 fL (80.0-97.0); Mean Platelet Volume 9.7 fL (9.5-12.2); Monocytes # (A) 0.61 10*3/uL (0.20-1.00); Monocytes % (A) 8.5 %; Neutrophils # (A) 4.32 10*3/uL (1.80-7.70); Neutrophils % (A) 60.1 %; Platelet Count 203 10*3/uL (140-440); RBC 4.85 10*6/uL (4.40-5.60); RDW 13.1 % (11.5-14.5); WBC 7.19 10*3/uL (4.50-10.00)
--- NOTE | 2024-10-21 22:39 | CT ---
EXAMINATION TYPE: CT brain wo con CT DLP: 1258.6 mGycm, Automated exposure control for dose reduction was used. DATE OF EXAM: 10/21/2024 10:27 PM COMPARISON: CT brain 11/30/2017, 11/29/2017, CTA head and neck 11/29/2017, MR brain 12/01/2017, 10/12/2016 CLINICAL INDICATION:Male, 83 years old with history of Visual hallucinations, HALLUCINATIONS TECHNIQUE: Brain: Multiple axial CT images of the brain were obtained without IV contrast. . Coronal and sagitta l reformats reviewed. FINDINGS: Brain: Extra-axial spaces: No abnormal extra-axial fluid collections. Ventricular system: Dilatation in proportion to cerebral atrophy. Cerebral parenchyma: Cerebral atrophy. No acute intraparenchymal hemorrhage or mass effect. Encephal omalacia within the left parieto-occipital temporal watershed region from prior injury demonstrated a gain The remaining parnell-white junction is well differentiated. Scattered hypoattenuating areas are se en within the periventricular white matter. Remote lacunar injury within the right posterior interna l capsule. Cerebellum: Unremarkable. Mass effect: No evidence of midline shift. Intracranial vasculature: Atherosclerotic calcifications of the intracranial vessels. Soft tissues: Normal. Calvarium/osseous structures: No depressed skull fracture. Postsurgical changes redemonstrated of the left parietal craniotomy. Paranasal sinuses and mastoid air cells: Partial opacification of the bilateral mastoid air cells. Mi nimal mucosal thickening of the posterior left ethmoid sinus. Minimal mucosal thickening in the right maxillary sinus. The brain and paranasal sinuses are clear. Visualized orbits: Senile calcific scleral plaques are present. Bilateral aphakia. IMPRESSION: 1. No acute intracranial process. 2. Similar regions of encephalomalacia within the left parieto-occipital temporal watershed region a nd right posterior internal capsule. 3. Nonspecific white matter changes, likely secondary to chronic small vessel ischemic disease. 4. Bilateral mastoid effusions. 5. Left parietal postoperative craniotomy changes redemonstrated. [facility], , 10/21/2024 10:36 PM
[2024-10-21 22:42] LABS: ALT 16 U/L (4-49); African American GFR (CKD) 77 (>60 ml/min/1.73 sqM); Albumin 3.7 g/dL (3.5-5.0); Anion Gap 4 mmol/L; Blood Urea Nitrogen 19 mg/dL (9-20); Calcium 8.8 mg/dL (8.4-10.2); Carbon Dioxide 30 mmol/L (22-30); Chloride 103 mmol/L (98-107); Glucose 230 mg/dL (74-99); Non-African American GFR(CKD) 67 (>60 ml/min/1.73 sqM); Sodium 137 mmol/L (137-145); Total Bilirubin 0.9 mg/dL (0.2-1.3); Total Protein 6.6 g/dL (6.3-8.2)
[2024-10-21 23:11] LABS: AST 32 U/L (17-59); Alkaline Phosphatase 71 U/L (38-126); Potassium 5.2 mmol/L (3.5-5.1)
[2024-10-22] MEDS: SODIUM CHLORIDE 0.9% 1,000 ML IV STA (00:10)
[2024-10-22 00:46] LABS: Appearance,Urine Clear (Clear); Bilirubin,Urine Negative (Negative); Blood,Urine Negative (Negative); Color,Urine Light Yellow; Glucose,Urine (UA) Negative (Negative); Ketones,Urine Negative (Negative); Leukocyte Esterase,Urine Negative (Negative); Nitrite,Urine Negative (Negative); Protein,Urine Trace (Negative); Specific Gravity,Urine 1.019 (1.001-1.035); Urobilinogen,Urine <2.0 mg/dL (<2.0)
[2024-10-22 02:31] VITALS: BP 186/88; PULSE 60; TEMP 98.1
== END 2024-10-22 02:31 | disposition home or self-care (01) ==
LOC: EC 20:19
DX: R44.1 Visual hallucinations (principal); E11.9 Type 2 diabetes mellitus without complications; I25.10 Atherosclerotic heart disease of native coronary artery without angina pectoris; Z86.011 Personal history of benign neoplasm of the brain; Z88.5 Allergy status to narcotic agent; Z91.040 Latex allergy status
CPT/HCPCS: 36415; 70450; 80053; 81003; 85025; 96360; 99285